=== PATIENT | female | born 1950 | race Caucasian/White ===

== ENCOUNTER 2016-11-16 17:14 | Inpatient (IN) | payer MEDICARE ==
[2016-11-16 17:56] LABS: #Eosinphils 0.2 thou/uL (0.0-0.7); #Lymphocytes 0.7 thou/uL (1.20-3.40); #Monocytes 0.4 thou/uL (0.11-0.59); #Neutrophils 3.3 thou/uL (1.40-6.50); %Basophils 0.2 % (0.0-1.0); %Eosinophils 4.5 % (0.0-10.0); %Lymphocytes 15.2 % (21.0-51.0); %Monocytes 8.8 % (0.0-10.0); Hematocrit 20.1 % (36.0-47.0); Mean Platelet Volume 6.2 fL (7.4-10.4); Red Blood Cell (RBC) Count 1.94 mill/uL (4.20-5.40); White Blood Cell (WBC) Count 4.7 thou/uL (4.8-10.8)
[2016-11-16 18:20] LABS: ALT (SGPT) 8 U/L (8-55); AST (SGOT) 17 U/L (5-34); Alkaline Phosphatase 73 U/L (40-150); Anion Gap 12 mmol/L (10-20); BUN (Urea Nitrogen) 17 mg/dL (9.8-20.1); Bilirubin, Total 0.2 mg/dL (0.2-1.2); CK (CPK) 28 U/L (29-168); Calc. Creatinine Clearance 0 mL/min (70-130); Calcium 9.1 mg/dL (7.8-10.44); Carbon Dioxide 23 mmol/L (23-31); Chloride 104 mmol/L (98-107); Estimated GFR-MDRD 29; Globulin 2.9 g/dL (2.4-3.5); Protein, Total 6.3 g/dL (6.0-8.3)
[2016-11-16 18:23] LABS: Troponin I Less than 0.010 ng/mL (< 0.028)
[2016-11-16] MEDS ORDERED: cefTRIAXone\\ROCEPHIN 1 GM VIAL ONE (19:06)
[2016-11-16 19:20] LABS: Bilirubin Negative (Negative); Blood, Urine Large (Negative); Glucose, Urine (Dipstick) Negative (Negative); Ketone, Urine Negative (Negative); Nitrite Negative (Negative); Protein, Urine (Dipstick) > or equal to 300 mg/dL (Neg-Trace); Urobilinogen 0.2 mg/dL (0.2-1.0)
[2016-11-16 19:33] LABS: Bacteria/HPF Rare-Few HPF (None Seen); Hyaline Casts/LPF NONE SEEN LPF (0-3 Hyaline); RBC/HPF GREATER THAN 50-TNTC HPF (0-3); Squamous Epithelial 0-3 HPF (0-3)
[2016-11-16] MEDS ORDERED: Fentanyl 100 MCG/2 ML VIAL ONE ×2 (19:48→20:39)
[2016-11-16] MEDS ORDERED: Iothalamate Meglumine 60% 50 ML VIAL FS ONE (20:02)
[2016-11-16] MEDS ORDERED: PHENYLEPHRINE-NS 100 MCG/ML 10 ML SYRINGE ONE (20:59)
[2016-11-16] MEDS ORDERED: Propofol 200 MG/20 ML VIAL ONE (20:59)
[2016-11-16] MEDS ORDERED: Succinylcholine Chloride 20 MG/ML 10 ml SYRINGE FS ONE (20:59)
[2016-11-16] MEDS ORDERED: Lidocaine 2% PF 10 ML AMP (For Epidural Use) ONE (20:59)
[2016-11-16] MEDS ORDERED: Ondansetron HCl/PF 4 MG/2 ML Vial IVP PRN (22:12)
[2016-11-16] MEDS ORDERED: Promethazine HCl 25 MG/ML VIAL IM PRN (22:12)
[2016-11-16] MEDS ORDERED: Morphine Sulfate 2 MG/ML SYRINGE SLOW IVP PRN (22:12)
[2016-11-16] MEDS ORDERED: Promethazine HCl 25 MG/ML VIAL SLOW IVP PRN (22:12)
[2016-11-16] MEDS ORDERED: HYDROmorphone 2 MG/ML VIAL SLOW IVP PRN (22:12)
--- NOTE | 2016-11-16 22:12 | RAD ---
RETROGRADE IVP: 11/16/16 HISTORY: Bilateral ureteral stents. Followup. COMPARISON: 09/20/16. Charm Filter Operator Helper film demonstrates a left stent in place. Contrast is injected into the right ureter with some right sided hydronephrosis and a right ureteral stent is placed. IMPRESSION: Bilateral ureteral stent placement. Moderate dilatation of both right and left upper collecting syst ems. Stable appearance from 09/20/16. POS: [facility]
[2016-11-16] MEDS ORDERED: Acetaminophen 325 MG TAB PO PRN (23:29)
[2016-11-16] MEDS ORDERED: HYDROcodone/Acetaminophen 5/325 mg Tablet PO PRN (23:29)
[2016-11-16] MEDS ORDERED: HYDROcodone/Acetaminophen 10/325 mg Tablet PO PRN (23:29)
[2016-11-16] MEDS ORDERED: Ondansetron ODT 4 MG TAB PO PRN (23:29)
[2016-11-17] MEDS: Sodium Chloride 0.9% 1,000 ML IV SCH ×2 (00:46→16:30)
[2016-11-17 01:05] VITALS: BMI 33.5
--- NOTE | 2016-11-17 01:44 | HP ---
DATE OF ADMISSION: 11/16/2016 The patient was seen at 11:30 p.m. PRIMARY CARE PHYSICIAN: Dr. Newman. CHIEF COMPLAINT: Weakness, blood and clots in the urine. HISTORY OF PRESENT ILLNESS: Ms. 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 She states that 3 days ago, Sunday, she started having very small clots in the urine that seemed to pass without difficulty. She presented to see her urologist, Dr. Garcia the next day, 2 days ago, and at that time was having slightly more blood. A urine test was significant for possible UTI, so the patient was started on amoxicillin/clavulanic acid and was watched. The bleeding continued to get worse to the point where she had large clots through the course of the day today and then was unable to urinate at all likely due to clot blockage. She presented to the emergency department for evaluation where she was found to have a hemoglobin of 6.7. Dr. Garcia was called, and took her to the cystoscopy suite for urgent cystoscopy, and right ureteral stent replacement. He subsequently led to a 3-way catheter and started her on CBI and we have been asked to admit. She denies any fevers or chills, no chest pain or shortness of breath, no nausea or vomiting, no oth er complaints. She was recently admitted on 09/19/2016 for dizziness, orthostasis, sepsis and complicated UTI. She completed a 14-day course of meropenem on 10/02/2016. From an Oncology standpoint, she was on chemotherapy, which she completed at the end of August/ A 2016. She has her follow up PET scan scheduled for 12/20/2016. She also completed 38 (she thinks) radiation external beam treatments at the same time. To her knowledge, she has had improve ment in her mass burden, but unknown how good At this point, post-cystoscopy, she is feeling much, much better. She denies any pain or other comp laints. PAST MEDICAL HISTORY: 1. Urothelial cancer with ureteral obstruction. 2. Right lower extremity deep vein thrombosis in 07/2016 on anticoagulation with Xarelto daily for a lifelong prophylaxis. 3. Bilateral renal obstruction secondary to her tumor. PAST SURGICAL HISTORY: 1. Include right nephrostomy around 06/2016, subsequently removed with a stent was able to be place d. 2. Left ureteral stent in 06/2016 and right ureteral stent in 08/2016. 3. Bilateral tubal ligation remotely. HOME MEDICATIONS: 1. Albuterol MDI 1 puff q.4 hours p.r.n., has not required in some time. 2. Xarelto 50 mg daily. 3. Multivitamin daily. 4. Urelle 1 tablet p.o. q.6 hours. 5. Iron sulfate 325 mg daily. ALLERGIES: NKDA. FAMILY HISTORY: Significant for dad with melanoma and blood clots. He was on Coumadin long-term. SOCIAL HISTORY: Significant for living at home alone. She did smoke about 1-1/2 pack of cigarettes per day for 30 years, but quit about 6 months ago. No history of IV drug use or alcohol use. Her daughter accompanies her to the hospital. REVIEW OF SYSTEMS: A 10-point review of systems was performed and significant for tingling to the b ottom of her feet for the last 3 days, improved, status post 2 units of blood transfusion today. Ot herwise, the 10-point review of systems was negative for all other systems except as stated as above . PHYSICAL EXAMINATION: VITAL SIGNS: Temperature 98.2, pulse 100, blood pressure 166/60, respiratory rate 20, satting 100% on room air. Pain was 5/10 on arrival, currently 0/10. GENERAL: She is awake. She is alert. She is oriented x3. She is a pleasant older white female, a ppears to be in no distress. HEENT: Normocephalic, atraumatic. Pupils are equal, round, and reactive bilaterally, mucous membra rosanna are moist. She has no visible lesions. No thrush. NECK: Supple, without lymphadenopathy, JVD or thyromegaly. LUNGS: Clear bilaterally. She has no wheezes, no rales, no rhonchi. She has good air movement and symmetrical chest excursion. CARDIOVASCULAR: Normal S1, S2, no S3, S4. She has normal cardiac. She has no audible murmurs. ABDOMEN: Obese. It is nontender, nondistended with no masses, no organomegaly. No rebound, rigidi ty or guarding. GENITOURINARY: Not examined. She does have a 3-way Bowden catheter in place. EXTREMITIES: Show no cyanosis, no clubbing, no edema, 2+ bounding peripheral pulses in the dorsalis pedis and posterior tibial bilaterally. She has no lesions present. SKIN: Warm, moist, and well perfused. She has no rashes or lesions. NEUROLOGIC: Shows cranial nerves II-XII to be grossly intact. She has no focal deficits, normal sp eech. She does have a slight numbness to her feet, but said her feeling is almost back to normal ar ound 90% to 95% at present. MUSCULOSKELETAL: Normal to inspection. She has no inflamed joints and no palpable joint effusions, no hemarthrosis. LABORATORY DATA: A comprehensive metabolic profile is normal except for a creatinine of 1.78, which is slightly above her normal baseline. CK, CK-MB, and troponin I were all negative. CBC showed a white count of 4.7. Her hemoglobin pretransfusion was 6.7 with a hematocrit of 20.1 an d platelet of 192,000. A retrograde pyelogram done in the cystoscopy suite showed left stent to be in place, right stent escamilla d been replaced. She had dilated bilateral collecting system in the kidneys and stable from 09/2016 . ASSESSMENT AND PLAN: 1. Gross hematuria. Blood and blood clots with significant anemia. She had her stent that she had passed, replaced in the cystoscopy suite tonight. She is currently undergoing CBI. 2. Acute blood loss anemia: Hemoglobin 6.7, and now status post 2 units of blood transfusion, we w ill repeat her blood counts in the morning. 3. Chronic kidney disease, stage 3, creatinine currently 1.78. The patient is getting hydration. We will continue to check and follow this up in the morning. 4. Urothelial cancer status post chemo and radiation. Dr. Parra is her oncologist, she has a PE T scan scheduled for 12/20/2016, no further workup at this time. At this time, we will hold the Xarelto. Follow up on her blood counts, and continue her iron. We w ill let her eat breakfast. She is no longer n.p.o. Make further recommendation when we have more i nformation back. The patient is currently on observation status. If her workup reveals further int ervention needed, we will convert her to full admission. Code status: The patient is a FULL CODE. This was discussed with the patient [id number] at the [facility] in presence of her daughter and the nurse.
--- NOTE | 2016-11-17 02:15 | OP ---
DATE OF PROCEDURE: 11/16/2016 PREOPERATIVE DIAGNOSES: Clot retention and dislodged stent, hematuria, hydronephrosis, history of m etastatic gynecologic cancer. 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 INDICATION FOR PROCEDURE: A very unfortunate 66-year-old female that has ovarian cancer that has escamilla d direct metastases into the bladder. These have caused ureteral obstruction. She presented to the ER with her right stent having fallen out and clot retention. Decision was made based on her hemog lobin that has dropped to 6.7, and her physical symptoms to go to the OR for clot evacuation, stent replacement, bladder fulguration. After signing informed consent, patient was taken back to the procedure room. She had already under gone IV antibiotics in the ER. She was given a general anesthetic, prepped, and draped in a sterile fashion after catheter was removed when her bladder with the cystoscope and there was a large organ ized clot and only the left stent was in place. We then switched to the continuous flow resectoscop e, using an Ellik, elliked out the clot. We then switched back to the cystoscope, found the right u reteral orifice. Put a 5-Argentine catheter into the orifice, shot a retrograde pyelogram that showed hydroureteronephrosis. We placed a sensor wire up into the kidney under direct vision with fluorosc opy and placed a 6 x 26 double-J stent, had a good curl in the kidney, good curl in the bladder. I then grasped the left stent brought it to the ureteral meatus. Put the sensor wire up into the kidn ey, removed the stent, put a 5-Argentine over the wire, removed the wire, shot a retrograde pyelogram. It also demonstrated hydroureteronephrosis. We then replaced the wire and placed a 6 x 26 double-J stent, had a good curl in the kidney, good curl in the bladder. A rrt image was saved prior to a nd images saved at the end of the case. We then switched back to the resectoscope and fulgurated th e multiple areas that were causing the most bleeding on the base of the bladder. The appearance is fairly classic of radiation cystitis and a diffuse hemorrhagic cystitis of tissue was very friable. We then stopped the flow and the bleeding appeared to have stopped, although there was blood also c oming from the kidneys. We then removed the resectoscope, placed a 24-Argentine three-way catheter irr igated clear and started CBI. It was light pink color, and we will have to run it wide open to allo w this to heal and she will continue on antibiotics.
--- NOTE | 2016-11-17 03:42 | CON ---
DATE OF CONSULTATION: 11/16/2016 CONSULTATION FROM: Dr. Pruett in the ER for hematuria, history of metastatic ovarian cancer status post chemoradiation. HISTORY OF PRESENT ILLNESS: She is a very unfortunate 66-year-old female that earlier this year was diagnosed with advanced ovarian cancer and had direct extension into the base of the bladder and ur eteral obstruction. She has stents in place and unfortunately developed a blood clot and has been o n blood thinners. She has been having increasing hematuria with clots for some time, but this got p rogressively worse in the last 24 hours. She presented to the emergency room, was found to have a c reatinine of 1.78 which was slightly elevated and hemoglobin down to 6.7. She was having difficulty urinating. PAST MEDICAL HISTORY: Arthritis, ovarian cancer, COPD, high cholesterol, hypertension, bilateral hy dronephrosis, renal failure, recurrent urinary tract infections. PAST SURGICAL HISTORY: Tubal ligation. She has had transurethral resection of the tumor from her b ladder, that was the initial diagnosis with stent placement. Home meds were reviewed. ALLERGIES: No known drug allergies. FAMILY HISTORY: Melanoma. SOCIAL HISTORY: She has recently stopped smoking. She denies alcohol use. REVIEW OF SYSTEMS: Constitutional: Denies fever or chills. Psychological: Negative for hallucination and disorientat ion, although she is anxious. Ophthalmic: Negative for double vision, blurred vision. ENT: Negat latisha for congestion, vertigo, sore throat. Hematologic/Lymphatic: She always has some night sweats. Respiratory: She is having some shortness of breath, denies wheezing. Cardiovascular: Negative for chest pain or rapid heart rate. Genitourinary: Hematuria with clots, decreased ability to void . Musculoskeletal: Denies back pain or joint pain. Gastrointestinal: Denies abdominal pain, naus ea or vomiting. Neurologic: No TIA or stroke-like symptoms. Dermatologic: Negative for any skin changes or rashes. PHYSICAL EXAMINATION: VITAL SIGNS: Temperature 98% on room air, blood pressure 142/76, pulse 88, respirations 20, tempera ture 98.5. She is alert, but in mild amount of distress. HEENT: Normocephalic, atraumatic. Glasses in place. RESPIRATORY: Unlabored, although she complains of shortness of breath. HEART: Regular rate. ABDOMEN: Soft, nontender, nondistended. She has some blood around the labia area. A 16 [place] Fol ey catheter was placed, returning cheyanne hematuria, no obvious clots. EXTREMITIES: She is moving all extremities well. Got some mild bilateral pitting edema. LABORATORY DATA: She has pancytopenia, white blood cell count 4.7, hemoglobin 6.7, platelet count i s 192. Chemistry: Sodium 135, potassium 3.6, chloride 104, CO2 of 23, BUN is 17. Creatinine 1.78, slightly elevated. Her troponins are negative. LFTs are within normal limits. No imaging. ASSESSMENT AND PLAN: A 66-year-old female with a history of ureteral obstruction, metastatic ovaria n cancer with direct extension into the bladder, status post radiation, now experiencing a radiation cystitis, worsened by her need to be on blood thinners from history of a deep venous thrombosis and she also has one of her stents dislodged. We will take her back to the OR for clot evacuation and fulguration of anything that we could see bleeding, stent exchange/replacement. The patient is awar e that we had great difficulty in placing a stent from below in the right ureter because of the dire ct extension of the tumor that is where she may eventually need a percutaneous nephrostomy tube.
[2016-11-17 06:30] LABS: #Eosinphils 0.1 thou/uL (0.0-0.7); #Lymphocytes 0.5 thou/uL (1.20-3.40); #Monocytes 0.5 thou/uL (0.11-0.59); #Neutrophils 3.9 thou/uL (1.40-6.50); %Basophils 0.4 % (0.0-1.0); %Eosinophils 1.8 % (0.0-10.0); %Monocytes 9.9 % (0.0-10.0); Hematocrit 23.3 % (36.0-47.0); Mean Platelet Volume 6.2 fL (7.4-10.4); Red Blood Cell (RBC) Count 2.36 mill/uL (4.20-5.40)
[2016-11-17 07:16] LABS: Anion Gap 9 mmol/L (10-20); BUN (Urea Nitrogen) 16 mg/dL (9.8-20.1); Calc. Creatinine Clearance 55 mL/min (70-130); Calcium 8.2 mg/dL (7.8-10.44); Carbon Dioxide 24 mmol/L (23-31); Chloride 107 mmol/L (98-107); Estimated GFR-MDRD 36
[2016-11-17] MEDS: Famotidine 20 MG TAB PO SCH ×2 (09:00→20:23)
[2016-11-17] MEDS ORDERED: FLU VACC TS2017-18 (>65YR) 0.5 ML SYRINGE IM ONE (09:00)
[2016-11-17] MEDS ORDERED: Bisacodyl 10 MG SUPP PR PRN (10:02)
[2016-11-17] MEDS ORDERED: Senokot 8.6 MG TAB PO PRN ×2 (10:02→13:33)
[2016-11-17] MEDS ORDERED: Milk Of Magnesia 30 ML UDCUP PO PRN (10:02)
--- NOTE | 2016-11-17 10:52 | PRG ---
DATE OF SERVICE: 11/17/2016 SUBJECTIVE: Overnight, the patient has done well. Her urine is pink tinged. OBJECTIVE: VITAL SIGNS: Afebrile with stable vital signs. GENERAL: Alert, no acute distress. ABDOMEN: Soft, nontender, and nondistended. GENITOURINARY: Again, her urine is light codey-aid color with CBI running. LABORATORY DATA: Hemoglobin is 7.8 and she overall is feeling better. 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 Plan will be to wean the CBI to off. Monito r her hemoglobin. Overall, she is much improved.
--- NOTE | 2016-11-17 12:32 | CON ---
DATE OF CONSULTATION: 11/17/2016 REASON FOR CONSULTATION: Anemia. HISTORY OF PRESENT ILLNESS: Ms. 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 She completed radiation and chemotherapy with cisplatin in August. On 09/04/2016 she did have a DVT of her left lower extremity veins in early August was started on Xar elto. At diagnosis she had bilateral hydronephrosis and hydroureter and had stent placements by Dr. Garcia. He has replaced her stents in the past. She overall was doing well until this last week when she began to have an increase in her hematuria. She also passed one of her stents in her urine , so she presented to the hospital for evaluation. Dr. Garcia was consulted and performed a bilate ral stent exchange with clot evacuation. In the ER, her hemoglobin was 6.7. She was transfused 2 u nits and hemoglobin has improved to 7.8. She denies any chest pain or shortness of breath. No abdo jt pain or discomfort. She continues to have blood-tinged urine and is undergoing continuous halina dder irrigation. Her primary complaint was bilateral foot numbness which started approximately 4 da ys ago, involves only the toes and ball of her foot bilaterally. PAST MEDICAL HISTORY: 1. Stage IV cervical cancer. 2. Chronic obstructive pulmonary disease. 3. DVT. 4. High cholesterol. 5. Hypertension. 6. Arthritis. PAST SURGICAL HISTORY: 1. Hysterectomy. 2. Bilateral ureteral stent placement. ALLERGIES: No known drug allergies. HOME MEDICATIONS: 1. Xarelto 20 mg daily. 2. Ferrous sulfate 325 mg b.i.d. 3. Myrbetriq 50 mg daily. FAMILY HISTORY: Father had melanoma, grandfather had stomach cancer. SOCIAL HISTORY: , 3 children. She is a former smoker. No alcohol or illicit drug use. REVIEW OF SYSTEMS: Twelve point review of systems negative except for noted in HPI. PHYSICAL EXAMINATION: VITAL SIGNS: Temperature is 98.4, pulse is 71, respiratory rate 16, BP is 98/56. She is 97% on wally m air. GENERAL: Well-developed, well-nourished female in no acute distress. HEENT: Normocephalic, atraumatic. Pupils equal and reactive to light. NECK: Supple. CARDIOVASCULAR: Regular rate and rhythm. LUNGS: Clear to auscultation. ABDOMEN: Soft, nontender, bowel sounds are positive. GENITOURINARY: She has a Bowden catheter in place with blood tinged urine, continuous bladder irriga tion in progress. EXTREMITIES: No clubbing, cyanosis. SKIN: No rash. HEMATOLOGIC: No petechia or purpura. NEUROLOGIC: Nonfocal. PSYCHIATRIC: The patient is alert and oriented. PERTINENT LABORATORY AND X-RAYS: Current WBCs are 5.0, hemoglobin 7.8, hematocrit 23.3, platelet co unt 152,000 78% neutrophils, 10% lymphocytes. Sodium 136, potassium 3.7, chloride 107, CO2 is 24, B UN is 16, creatinine 1.46, calcium 8.2, total bilirubin is 0.2, AST 17, ALT is 8, alkaline phosphata se 73, creatinine kinase 28. Troponin is negative. Serum total protein 6.3, albumin 2.4, globulin 2.9. Urine was negative for bacteria. IMPRESSION: 1. 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 2. Chronic hematuria. 3. Bilateral hydronephrosis with stent placement. 4. Chronic anemia secondary to acute blood loss. DISCUSSION: The patient has been transfused 2 units with improvement in her packed cells. Her gil turia has improved the last 24 hours. We will check iron studies and B12 and replace if needed. Fo llow her CBC and transfuse her for hemoglobin less than 7. Her Xarelto is being held. However, she will require lifelong anticoagulation. We will resume once her hematuria has improved. Thank you for the consult. We will follow her hospital course.
--- NOTE | 2016-11-17 13:27 | PDOC.PN ---
- Subjective Encounter Start Date: 11/17/16 Encounter Start Time: 10:15 Patient seen and examined. No new complaints. No overnight events. on CBI. Sitting on chair. No pain. - Objective MAR Reviewed: Yes Vital Signs & Weight: Vital Signs (12 hours) Temp Pulse Resp BP Pulse Ox 11/17/16 11:54 98.3 F 78 16 116/73 100 Result Diagrams: 11/17/16 05:45 11/17/16 05:45 Additional Labs: Accuchecks 11/17/16 10:23 POC Glucose 97 Phys Exam - Physical Examination Constitutional: NAD Respiratory: no wheezing, no rhonchi Cardiovascular: RRR, no rub Gastrointestinal: soft, non-tender, positive bowel sounds Musculoskeletal: no edema Neurological: moves all 4 limbs Psychiatric: A&O x 3 Dx/Plan (1) Hemorrhagic cystitis Code(s): N30.91 - CYSTITIS, UNSPECIFIED WITH HEMATURIA Status: Acute (2) Gross hematuria Status: Acute (3) Anemia associated with acute blood loss Code(s): D62 - ACUTE POSTHEMORRHAGIC ANEMIA Status: Acute Comment: s/p 2 unit PRBC (4) DVT (deep venous thrombosis) Code(s): I82.409 - ACUTE EMBOLISM AND THOMBOS UNSP DEEP VN UNSP LOWER EXTREMITY Status: Chronic Comment: on Xarelto at home (5) Other issues per previous notes Status: Acute Comment: Hypertension, Hyperlipidemia, Urothelial malignancy, Obesity BMI 33.5 - Plan cont current plan of care, jones catheter, continue antibiotics, out of bed/ ambulate, DVT proph w/SCDs * Xarelto on hold * Consult Oncology * Repeat HH later today * AM labs * Urology following * Cont to monitor * Resume other home meds Review of Systems - Review of Systems Constitutional: negative: Fever, Chills, Sweats, Weakness, Malaise, Other Respiratory: negative: Cough, Dry, Shortness of Breath, Hemoptysis, SOB with Excertion, Pleuritic Pain, Sputum, Wheezing Cardiovascular: negative: Chest Pain, Palpitations, Orthopnea, Paroxysmal Noc. Dyspnea, Edema, Light Headedness, Other Gastrointestinal: negative: Nausea, Vomiting, Abdominal Pain, Diarrhea, Constipation, Melena, Hematochezia, Other Neurological: negative: Weakness, Numbness, Incoordination, Change in Speech, Confusion, Seizures, Other - Medications/Allergies Allergies/Adverse Reactions: Allergies Allergy/AdvReac Type Severity Reaction Status Date / Time No Known Drug Allergies Allergy Verified 06/18/16 13:16 Medications: Current Medications Acetaminophen (Tylenol) 650 mg PO Q4H PRN PRN Reason: Headache/Fever or Pain Hydrocodone Bitart/Acetaminophen ([place] 10/325) 1 tab PO Q4H PRN PRN Reason: Severe Pain (7-10) Hydrocodone Bitart/Acetaminophen ([place] 5/325) 1 tab PO Q4H PRN PRN Reason: Moderate Pain (4-6) Bisacodyl (Dulcolax) 10 mg MD Q24H PRN PRN Reason: Constipation Cholecalciferol (Vitamin D3) 1,000 units PO DAILY [facility] Docusate Sodium (Colace) 100 mg PO BID [facility] Famotidine (Pepcid) 20 mg PO BID [facility] Last Admin: 11/17/16 09:00 Dose: 20 mg Ferrous Sulfate (Feosol) 325 mg PO BID [facility] Sodium Chloride (Normal Saline 0.9%) 1,000 mls @ 100 mls/hr IV .Q10H [facility] Last Admin: 11/17/16 00:46 Dose: 1,000 mls Ceftriaxone Sodium 1 gm/ (Sodium Chloride) 100 mls @ 200 mls/hr IVPB Q24HR [facility] Magnesium Hydroxide (Milk Of Magnesium) 30 ml PO DAILYPRN PRN PRN Reason: Constipation Multivitamins (Theragran) 1 tab PO DAILY [facility] Ondansetron HCl (Zofran Odt) 4 mg PO Q6H PRN PRN Reason: Nausea/Vomiting Senna (Senokot) 2 tab PO HSPRN PRN PRN Reason: Constipation Sodium Chloride (Flush - Normal Saline) 10 ml IVF Q12HR [facility] Last Admin: 11/17/16 09:00 Dose: Not Given Sodium Chloride (Flush - Normal Saline) 10 ml IVF PRN PRN PRN Reason: Saline Flush
[2016-11-17] MEDS ORDERED: Polyethylene Glycol 3350 17 GM Packet PO PRN (13:33)
[2016-11-17 16:18] LABS: Hematocrit 23.9 % (36.0-47.0)
[2016-11-17] MEDS: Ferrous Sulfate 325 MG TAB PO SCH (20:23)
[2016-11-17] MEDS: Docusate 100 MG CAP PO SCH (20:23)
[2016-11-17] MEDS ORDERED: Non-Formulary Item 1 EACH (Ferrous Sulfate [Ferrous Sulfate] 325 MG) PO SCH (21:00)
[2016-11-18] MEDS: cefTRIAXone\\ROCEPHIN 1 GM in Sodium Chloride 0.9% 100 ML IVPB SCH ×2 (00:24→20:51)
[2016-11-18] MEDS: Sodium Chloride 0.9% 1,000 ML IV SCH ×2 (00:27→06:56)
[2016-11-18 07:06] LABS: #Eosinphils 0.2 thou/uL (0.0-0.7); #Lymphocytes 0.5 thou/uL (1.20-3.40); #Monocytes 0.4 thou/uL (0.11-0.59); #Neutrophils 3.2 thou/uL (1.40-6.50); %Basophils 0.2 % (0.0-1.0); %Eosinophils 4.1 % (0.0-10.0); %Lymphocytes 10.8 % (21.0-51.0); %Monocytes 10.1 % (0.0-10.0); Hematocrit 22.4 % (36.0-47.0); Mean Platelet Volume 6.4 fL (7.4-10.4); Red Blood Cell (RBC) Count 2.22 mill/uL (4.20-5.40); White Blood Cell (WBC) Count 4.3 thou/uL (4.8-10.8)
[2016-11-18 07:26] LABS: Anion Gap 8 mmol/L (10-20); BUN (Urea Nitrogen) 13 mg/dL (9.8-20.1); BUN/Creatinine Ratio 8.97; Calc. Creatinine Clearance 55 mL/min (70-130); Calcium 8.3 mg/dL (7.8-10.44); Carbon Dioxide 25 mmol/L (23-31); Chloride 108 mmol/L (98-107); Estimated GFR-MDRD 36; Magnesium 1.8 mg/dL (1.6-2.6); Phosphorus 3.2 mg/dL (2.3-4.7)
[2016-11-18] MEDS ORDERED: Non-Formulary Item 1 EACH (Cholecalciferol (Vitamin D3) [Vitamin D3] 1,000 UNIT) PO SCH (09:00)
[2016-11-18] MEDS ORDERED: Non-Formulary Item 1 EACH (Multivitamin [Multivitamins] 1 CAP) PO SCH (09:00)
--- NOTE | 2016-11-18 09:20 | PDOC.PN ---
- Subjective Encounter Start Date: 11/18/16 Encounter Start Time: 09:17 Patient seen and examined. No new complaints. No overnight events. On CBI. Gross hematuria + - Objective MAR Reviewed: Yes Vital Signs & Weight: Vital Signs (12 hours) Temp Pulse Resp BP Pulse Ox 11/18/16 08:00 98.1 F 74 18 131/70 96 11/18/16 04:41 98.2 F 75 16 101/66 96 11/17/16 23:48 98.4 F 75 16 99/60 97 I&O: 11/17/16 11/18/16 11/19/16 06:59 06:59 06:59 Output Total 3195 Balance -3195 Result Diagrams: 11/18/16 06:50 11/18/16 06:50 Additional Labs: Accuchecks 11/17/16 10:23 POC Glucose 97 Phys Exam - Physical Examination Constitutional: NAD Respiratory: no wheezing, no rhonchi Cardiovascular: RRR, no rub Gastrointestinal: soft, non-tender, positive bowel sounds Musculoskeletal: no edema Neurological: moves all 4 limbs Psychiatric: A&O x 3 Dx/Plan (1) Hemorrhagic cystitis Code(s): N30.91 - CYSTITIS, UNSPECIFIED WITH HEMATURIA Status: Acute Comment : on CBI, Atbx (2) Gross hematuria Status: Acute Comment: on CBI (3) Anemia associated with acute blood loss Code(s): D62 - ACUTE POSTHEMORRHAGIC ANEMIA Status: Acute Comment: s/p 2 unit PRBC (4) DVT (deep venous thrombosis) Code(s): I82.409 - ACUTE EMBOLISM AND THOMBOS UNSP DEEP VN UNSP LOWER EXTREMITY Status: Chronic Comment: Xarelto ON HOLD (5) Other issues per previous notes Status: Acute Comment: Hypertension, Hyperlipidemia, Urothelial malignancy, Obesity BMI 33.5 - Plan cont current plan of care, DVT proph w/SCDs * DC IVF * Xarelto on hold * Oncology/Urology following * AM labs * Cont Atbx * Cont to monitor * Cont other meds as below Review of Systems - Review of Systems Constitutional: negative: Fever, Chills, Sweats, Weakness, Malaise, Other Respiratory: negative: Cough, Dry, Shortness of Breath, Hemoptysis, SOB with Excertion, Pleuritic Pain, Sputum, Wheezing Cardiovascular: negative: Chest Pain, Palpitations, Orthopnea, Paroxysmal Noc. Dyspnea, Edema, Light Headedness, Other Gastrointestinal: negative: Nausea, Vomiting, Abdominal Pain, Diarrhea, Constipation, Melena, Hematochezia, Other Neurological: negative: Weakness, Numbness, Incoordination, Change in Speech, Confusion, Seizures, Other - Medications/Allergies Allergies/Adverse Reactions: Allergies Allergy/AdvReac Type Severity Reaction Status Date / Time No Known Drug Allergies Allergy Verified 06/18/16 13:16 Medications: Current Medications Acetaminophen (Tylenol) 650 mg PO Q4H PRN PRN Reason: Headache/Fever or Pain Hydrocodone Bitart/Acetaminophen (Ione 10/325) 1 tab PO Q4H PRN PRN Reason: Severe Pain (7-10) Hydrocodone Bitart/Acetaminophen (Ione 5/325) 1 tab PO Q4H PRN PRN Reason: Moderate Pain (4-6) Bisacodyl (Dulcolax) [address] Q24H PRN PRN Reason: Constipation Cholecalciferol (Vitamin D3) 1,000 units PO DAILY [facility] Cyanocobalamin (Vitamin B-12) 1,000 mcg PO DAILY [facility] Docusate Sodium (Colace) 100 mg PO BID [facility] Last Admin: 11/17/16 20:23 Dose: 100 mg Famotidine (Pepcid) 20 mg PO BID [facility] Last Admin: 11/17/16 20:23 Dose: 20 mg Ferrous Sulfate (Feosol) 325 mg PO BID [facility] Last Admin: 11/17/16 20:23 Dose: 325 mg Ceftriaxone Sodium 1 gm/ (Sodium Chloride) 100 mls @ 200 mls/hr IVPB Q24HR [facility] Last Admin: 11/18/16 00:24 Dose: 100 mls Potassium Chloride/Sodium Chloride (Ns 0.9% W/ 20 Meq Kcl) 1,000 ml in 1,000 mls @ 50 mls/hr IV .Q20H [facility] Magnesium Hydroxide (Milk Of Magnesium) 30 ml PO DAILYPRN PRN PRN Reason: Constipation Multivitamins (Theragran) 1 tab PO DAILY [facility] Ondansetron HCl (Zofran Odt) 4 mg PO Q6H PRN PRN Reason: Nausea/Vomiting Polyethylene Glycol (Miralax) 17 gm PO DAILY PRN PRN Reason: Constipation Senna (Senokot) 2 tab PO HSPRN PRN PRN Reason: Constipation Sodium Chloride (Flush - Normal Saline) 10 ml IVF Q12HR [facility] Last Admin: 11/18/16 00:28 Dose: Not Given Sodium Chloride (Flush - Normal Saline) 10 ml IVF PRN PRN PRN Reason: Saline Flush
[2016-11-18] MEDS: Docusate 100 MG CAP PO SCH ×2 (09:45→20:53)
[2016-11-18] MEDS: Famotidine 20 MG TAB PO SCH ×2 (09:45→20:52)
[2016-11-18] MEDS: Ferrous Sulfate 325 MG TAB PO SCH ×2 (09:45→20:52)
[2016-11-18] MEDS: Cyanocobalamin (Vitamin B-12) 1,000 MCG TAB PO SCH (09:45)
[2016-11-18] MEDS: Multivit, Therapeutic 1 TAB PO SCH (09:46)
[2016-11-18] MEDS: NS 0.9% w/ 20 MEQ KCL 1,000 ML/1,000 ML BAG IV SCH (14:39)
[2016-11-19] MEDS: NS 0.9% w/ 20 MEQ KCL 1,000 ML/1,000 ML BAG IV SCH (05:11)
[2016-11-19 07:04] LABS: #Eosinphils 0.2 thou/uL (0.0-0.7); #Lymphocytes 0.5 thou/uL (1.20-3.40); #Monocytes 0.5 thou/uL (0.11-0.59); #Neutrophils 2.7 thou/uL (1.40-6.50); %Monocytes 11.9 % (0.0-10.0); Hematocrit 23.5 % (36.0-47.0); Mean Platelet Volume 6.3 fL (7.4-10.4); Red Blood Cell (RBC) Count 2.31 mill/uL (4.20-5.40); White Blood Cell (WBC) Count 3.9 thou/uL (4.8-10.8)
[2016-11-19 07:24] LABS: ALT (SGPT) 10 U/L (8-55); AST (SGOT) 14 U/L (5-34); Alkaline Phosphatase 59 U/L (40-150); Anion Gap 9 mmol/L (10-20); BUN (Urea Nitrogen) 13 mg/dL (9.8-20.1); Bilirubin, Total 0.2 mg/dL (0.2-1.2); Calc. Creatinine Clearance 60 mL/min (70-130); Calcium 8.5 mg/dL (7.8-10.44); Carbon Dioxide 24 mmol/L (23-31); Chloride 110 mmol/L (98-107); Estimated GFR-MDRD 40; Globulin 2.5 g/dL (2.4-3.5); Protein, Total 5.2 g/dL (6.0-8.3)
[2016-11-19] MEDS: Cyanocobalamin (Vitamin B-12) 1,000 MCG TAB PO SCH (08:01)
[2016-11-19] MEDS: Multivit, Therapeutic 1 TAB PO SCH (08:01)
[2016-11-19] MEDS: Famotidine 20 MG TAB PO SCH ×2 (08:02→20:29)
[2016-11-19] MEDS: Docusate 100 MG CAP PO SCH ×2 (08:03→20:29)
[2016-11-19] MEDS: Ferrous Sulfate 325 MG TAB PO SCH ×2 (08:03→20:29)
--- NOTE | 2016-11-19 16:17 | PDOC.PN ---
- Subjective Encounter Start Date: 11/19/16 Encounter Start Time: 16:15 Subjective: f/u for gross hematuria due to hemorrhagic cystitis in context of -: urothelial carcinoma s/p chemo/XRT tx. Tx with CBI, cystoscopy with R -: ureteral stent placment and avoidance of Xarelto. - Objective MAR Reviewed: Yes Vital Signs & Weight: Vital Signs (12 hours) Temp Pulse Resp BP BP Pulse Ox 11/19/16 11:56 98.3 F 77 18 116/68 97 11/19/16 07:00 98.3 F 64 17 124/72 98 11/19/16 04:15 98.6 F 72 17 117/71 95 I&O: 11/18/16 11/19/16 11/20/16 06:59 06:59 06:59 Output Total 3195 7550 350 Balance -3195 -1950 -350 Result Diagrams: 11/19/16 06:00 11/19/16 06:00 Additional Labs: Laboratory Tests 11/16/16 11/16/16 11/17/16 17:46 17:46 05:45 Hgb 6.7 L Creatinine 1.78 H 1.46 H TIBC Ferritin Vitamin B12 Folate 11/17/16 11/17/16 11/17/16 05:45 16:10 16:10 Hgb 7.8 L 8.0 L Creatinine TIBC 206 L Ferritin Vitamin B12 Folate 11/17/16 11/17/16 11/18/16 16:10 16:10 06:50 Hgb 7.5 L Creatinine TIBC Ferritin 153.46 Vitamin B12 299 Folate 12.20 11/18/16 06:50 Hgb Creatinine 1.45 H TIBC Ferritin Vitamin B12 Folate Phys Exam - Physical Examination Constitutional: NAD HEENT: PERRLA, oral pharynx no lesions Neck: no JVD, supple Respiratory: no wheezing, clear to auscultation bilateral Cardiovascular: RRR Gastrointestinal: soft, non-tender, no distention, positive bowel sounds Musculoskeletal: no edema, pulses present Neurological: normal sensation, moves all 4 limbs Psychiatric: A&O x 3 Skin: normal turgor, cap refill <2 seconds Deviation from normal: Bowden with dark, pink urine Dx/Plan (1) Anemia associated with acute blood loss Code(s): D62 - ACUTE POSTHEMORRHAGIC ANEMIA Status: Acute Comment: s/p 2 unit PRBC, stable (2) Gross hematuria Status: Acute Comment: on CBI, continue per Urology service (3) Hemorrhagic cystitis Code(s): N30.91 - CYSTITIS, UNSPECIFIED WITH HEMATURIA Status: Acute Comment : on CBI, continue Rocephin 1gm IV daily (4) POONAM (acute kidney injury) Code(s): N17.9 - ACUTE KIDNEY FAILURE, UNSPECIFIED Status: Acute Comment: Renal function improved, continue current mgmt, serial creatinine (5) Hydronephrosis of right kidney Code(s): N13.30 - UNSPECIFIED HYDRONEPHROSIS Status: Acute Comment: s/p R ureteral stent placement 11/16/16 (6) CKD (chronic kidney disease) stage 3, GFR 30-59 ml/min Code(s): N18.3 - CHRONIC KIDNEY DISEASE, STAGE 3 (MODERATE) Status: Chronic (7) Primary cervical squamous cell carcinoma Code(s): C53.9 - MALIGNANT NEOPLASM OF CERVIX UTERI, UNSPECIFIED Status: Chronic Comment: Stage IV cervical carcinoma, s/p chemo/XRT - Plan continue antibiotics, DVT proph w/SCDs Stable overall -: Avoid anticoagulation, NSAIDs -: CBI per Urology service -: Continue Rocephin 1gm IV q24h -: AM lab: BMP, H/H * .
[2016-11-19] MEDS: cefTRIAXone\\ROCEPHIN 1 GM in Sodium Chloride 0.9% 100 ML IVPB SCH (20:29)
[2016-11-20 05:26] LABS: Hematocrit 22.1 % (36.0-47.0)
[2016-11-20 05:33] LABS: Anion Gap 10 mmol/L (10-20); BUN (Urea Nitrogen) 13 mg/dL (9.8-20.1); Calc. Creatinine Clearance 63 mL/min (70-130); Calcium 8.6 mg/dL (7.8-10.44); Carbon Dioxide 25 mmol/L (23-31); Chloride 109 mmol/L (98-107); Estimated GFR-MDRD 42
[2016-11-20] MEDS: Famotidine 20 MG TAB PO SCH ×2 (08:35→20:14)
[2016-11-20] MEDS: Multivit, Therapeutic 1 TAB PO SCH (08:35)
[2016-11-20] MEDS: Docusate 100 MG CAP PO SCH ×2 (08:35→20:15)
[2016-11-20] MEDS: Cyanocobalamin (Vitamin B-12) 1,000 MCG TAB PO SCH (08:35)
[2016-11-20] MEDS: Ferrous Sulfate 325 MG TAB PO SCH ×2 (08:36→20:14)
--- NOTE | 2016-11-20 08:58 | PDOC.PN ---
- Subjective Encounter Start Date: 11/20/16 Encounter Start Time: 09:00 Subjective: f/u for gross hematuria currently on CBI with some clearing per nursing. -: Hgb 7.4 stable. - Objective MAR Reviewed: Yes Vital Signs & Weight: Vital Signs (12 hours) Temp Pulse Resp BP Pulse Ox 11/20/16 07:22 98.5 F 74 16 127/75 98 11/20/16 04:00 98.2 F 70 18 113/63 98 11/20/16 00:01 98.5 F 81 17 107/68 99 I&O: 11/19/16 11/20/16 11/21/16 06:59 06:59 06:59 Intake Total 2456 Output Total 1950 1475 Balance -1950 981 Result Diagrams: 11/20/16 05:00 11/20/16 05:00 Additional Labs: Laboratory Tests 11/16/16 11/16/16 11/17/16 17:46 17:46 05:45 Hgb 6.7 L Creatinine 1.78 H 1.46 H TIBC Ferritin Vitamin B12 Folate 11/17/16 11/17/16 11/17/16 05:45 16:10 16:10 Hgb 7.8 L 8.0 L Creatinine TIBC 206 L Ferritin Vitamin B12 Folate 11/17/16 11/17/16 11/18/16 16:10 16:10 06:50 Hgb 7.5 L Creatinine TIBC Ferritin 153.46 Vitamin B12 299 Folate 12.20 11/18/16 11/19/16 11/19/16 06:50 06:00 06:00 Hgb 7.6 L Creatinine 1.45 H 1.33 H TIBC Ferritin Vitamin B12 Folate Phys Exam - Physical Examination Constitutional: NAD HEENT: PERRLA, oral pharynx no lesions Neck: no JVD, supple Respiratory: no wheezing, clear to auscultation bilateral Cardiovascular: RRR Gastrointestinal: soft, non-tender, no distention, positive bowel sounds Musculoskeletal: no edema, pulses present Neurological: normal sensation, moves all 4 limbs Psychiatric: A&O x 3 Skin: normal turgor, cap refill <2 seconds Deviation from normal: Bowden with slight pink/orange urine Dx/Plan (1) Anemia associated with acute blood loss Code(s): D62 - ACUTE POSTHEMORRHAGIC ANEMIA Status: Acute Comment: s/p 2 unit PRBC, stable, Hgb stable in 7.5 range (2) Gross hematuria Status: Acute Comment: on CBI, continue per Urology service, improving (3) Hemorrhagic cystitis Code(s): N30.91 - CYSTITIS, UNSPECIFIED WITH HEMATURIA Status: Acute Comment : on CBI, continue Rocephin 1gm IV daily (4) POONAM (acute kidney injury) Code(s): N17.9 - ACUTE KIDNEY FAILURE, UNSPECIFIED Status: Acute Comment: Renal function improved, continue current mgmt, serial creatinine (5) Hydronephrosis of right kidney Code(s): N13.30 - UNSPECIFIED HYDRONEPHROSIS Status: Acute Comment: s/p R ureteral stent placement 11/16/16 (6) CKD (chronic kidney disease) stage 3, GFR 30-59 ml/min Code(s): N18.3 - CHRONIC KIDNEY DISEASE, STAGE 3 (MODERATE) Status: Chronic (7) Primary cervical squamous cell carcinoma Code(s): C53.9 - MALIGNANT NEOPLASM OF CERVIX UTERI, UNSPECIFIED Status: Chronic Comment: Stage IV cervical carcinoma, s/p chemo/XRT - Plan continue antibiotics, DVT proph w/SCDs Stable currently -: Continue CBI and monitor response, overall improved -: Continue Rocephin 1gm IV daily -: Avoid NSAIDs, anticoagulation -: Continue FeSO4 325mg BID * AM lab: BMP, H/H * Likely home in 24h
--- NOTE | 2016-11-20 12:17 | PQF ---
RODERICK NIETODWIGHT DO [id number] SURG B- [id number] CLINICAL DOCUMENTATION IMPROVEMENT CLARIFICATION FORM: ICD-10 Updated PLEASE DO AN ADDENDUM TO THE PROGRESS NOTE WITH ANY DOCUMENTATION UPDATES OR ADDITIONS AND CARRY THROUGH TO DC SUMMARY. THANK YOU. DATE: 11-20-16 ATTN: DR. RIVER Please exercise your independent, professional judgment in responding to the clarification form. Clinical indicators are provided on the bottom of this form for your review Please check appropriate box(s): Pancytopenia due to: [ ] Chemotherapy/antineoplastic drugs [ ] Other drug-induced Xarelto [ ] Other diagnosis [ x] Unable to determine In addition, please specify: Present on Admission (POA): [ ] Yes [ ] No [ x ] Unable to determine For continuity of documentation, please document condition throughout progress notes and discharge summary. Thank You. CLINICAL INDICATORS - SIGNS / SYMPTOMS / LABS CONSULT DR. MCGILL: SHE HAS PANCYTOPENIA LABS: WBC 10-5 4.7 RBC 1.94 10-6 5.0 2.36 10-7 4.3 2.22 10-8 3.9 2.[address] MCGILL - METASTATIC OVARIAN CANCER S/P CHEMORADIATION, NOW EXPERIENCING RADIATION CYSTITIS. WORSENED BY NEED TO BE ON BLOOD THINNERS (XARELTO) D/T HX OF DVT. TREATMENT: COPE - 2 UNITS PRBC 11-16-16 H&P: HOLD XARELTO THANK YOU, MARANDA (This form is maintained as a part of the permanent medical record) 2014 [employer] All Rights Reserved Maranda Azevedo RN, BS [email or web address] [facility]
[2016-11-20] MEDS: cefTRIAXone\\ROCEPHIN 1 GM in Sodium Chloride 0.9% 100 ML IVPB SCH (20:13)
[2016-11-21 04:24] LABS: Hematocrit 21.8 % (36.0-47.0)
[2016-11-21 05:38] LABS: Anion Gap 10 mmol/L (10-20); BUN (Urea Nitrogen) 12 mg/dL (9.8-20.1); Calc. Creatinine Clearance 65 mL/min (70-130); Calcium 8.4 mg/dL (7.8-10.44); Carbon Dioxide 23 mmol/L (23-31); Chloride 107 mmol/L (98-107); Estimated GFR-MDRD 44
[2016-11-21] MEDS: Docusate 100 MG CAP PO SCH (08:57)
[2016-11-21] MEDS: Cyanocobalamin (Vitamin B-12) 1,000 MCG TAB PO SCH (08:58)
[2016-11-21] MEDS: Famotidine 20 MG TAB PO SCH (08:58)
[2016-11-21] MEDS: Ferrous Sulfate 325 MG TAB PO SCH (08:58)
[2016-11-21] MEDS: Multivit, Therapeutic 1 TAB PO SCH (08:58)
[2016-11-21 19:58] VITALS: BP 130/73; TEMP 99.2
--- NOTE | 2016-11-21 22:51 | DIS ---
DATE OF ADMISSION: 11/16/2016 DATE OF DISCHARGE: 11/21/2016 DISCHARGE DIAGNOSES: 1. Gross hematuria secondary to clot retention and displaced ureteral stent. 2. Acute blood loss anemia secondarily to gross hematuria secondary to clot retention and displaced ureteral stent. 3. Hemorrhagic cystitis, improved. 4. Acute kidney injury secondarily to acute blood loss anemia secondarily to gross hematuria second charlotte to clot retention and displaced ureteral stent, resolved. 5. 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 6. Status post right ureteral stent replacement, 11/16/2016. 7. Status post 2 units of packed red blood cells. 8. Right lower extremity deep vein thrombosis with previous Xarelto therapy. CONSULTATIONS: 1. Dr. Garcia with Urology service. 2. Medical Oncology Service. PERTINENT LABORATORY AND X-RAY FINDINGS: Creatinine ranged between 1.22-1.78 with estimated GFR ran ging between 29-44. Phosphorus 3.2, magnesium 1.8, ferritin 153, TIBC 206, vitamin B12 level 299, f olate 12.2. CBC showed a hemoglobin ranging between 7.2-8.0, platelet count ranged between 137-152. HOSPITAL COURSE: The patient was admitted to the [facility] after presenting with gross hematuri a and acute blood loss anemia with initial hemoglobin of 6.7. The patient received 2 units of packe d red blood cells with serial H\T\H monitoring showing an overall stable trend with hemoglobin in th e 7.5 range through the remainder of the hospital course. The patient was noted with hemorrhagic cy stitis, undergoing cystoscopy by the Urology service and replacement of a displaced right ureteral s tent. The patient was placed on continuous bladder irrigation with serial monitoring of urine quali ty. The patient had overall improved clearing of the urine and resolving clot retention in the blad rafael. The patient was noted with mild acute kidney injury at the time of presentation, likely second charlotte to bladder outlet obstruction due to clot retention. Creatinine had improved by the time of dis charge with IV fluids as well as continuous bladder irrigation. The patient was discontinued on ora l anticoagulation due to the gross hematuria and need for packed red blood cell transfusions. Curre ntly, the patient clinically stabilized with the overall clearing of the urine with continuous bladd er irrigation and supportive measures. The patient is currently stable and ready for discharge on . DISCHARGE MEDICATIONS: 1. Vitamin D3 1000 units p.o. daily. 2. Ferrous sulfate 325 mg p.o. b.i.d. 3. Multivitamin 1 tab p.o. daily. FOLLOWUP: The patient may follow up with her primary care provider, Dr. Eduardo Newman, within 7 day s of discharge. The patient will follow up with Dr. Garcia with Urology Service and call his offic e for appointment time and the date in the next 2 weeks. CONDITION ON DISCHARGE: Stable. ACTIVITY: ad nae. DIET: Regular. CODE STATUS: FULL. DISPOSITION: Home on 11/21/2016. Total time preparing and coordinating discharge, 35 minutes.
--- NOTE | 2016-11-21 23:34 | CON ---
DATE OF CONSULTATION: 11/21/2016 NEPHROLOGY CONSULTATION REASON FOR CONSULTATION: Chronic kidney disease. HISTORY OF PRESENT ILLNESS: This is a very pleasant 66-year-old female who was admitted to the [facility] for squamous cell carcinoma of the cervix and stent replacement. The patient also had proteinu nato. She was noted to have blood clots in her urine. PAST MEDICAL HISTORY: Significant for urothelial cancer, cervical cancer, right lower extremity DVT , bilateral obstruction secondary to her tumor, nephrostomy. HOME MEDICATIONS: List reviewed. HOSPITAL MEDICATIONS: List reviewed. SOCIAL HISTORY: No alcohol or drug use. FAMILY HISTORY: Negative for ESRD. REVIEW OF SYSTEMS: A 15-point review of systems was performed and negative except for positives not ed above. GENERAL: Weakness- HEAD: Headache- NECK: No swelling or lumps. NOSE: No epistaxis or discharge. EYES: No diplopia or pain. 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 NEUROPSYCHIATRIC SYSTEMS: No suicidal ideation. No ideation. SKIN: Denies any rash or ulcer. CONSTITUTIONAL: No fever or chills. PHYSICAL EXAMINATION: GENERAL: The patient is awake and alert. VITAL SIGNS: Afebrile, pulse 70, breathing at 16, blood pressure 132/77. OBJECTIVE: See above. HEAD/NECK: Normocephalic. Atraumatic. EYES: EOMI. No deformity. EARS: Clear. No ulcers. NOSE: Intact. No lesions. MOUTH: Clear. No discharge. THROAT: Clear. No exudate. LUNGS: Clear. No crackles. CARDIAC: S1, S2. No rub. ABDOMEN: Benign. BS+. GENITALIA/RECTUM: Bowden absent. BACK/EXTREMITIES: Edema 0+ Ulcer- NEUROLOGICAL: Alert and motor intact. SKIN: Rash- Bruise- LYMPHATICS: Edema- Ulcer- LABORATORY DATA: Showed potassium 3.3, creatinine 1.2. ASSESSMENT AND RECOMMENDATIONS: 1. Chronic kidney disease stage 3, stable. 2. Hypertension, stable. 3. Hypokalemia. Recommend aggressive potassium replacement. 4. Proteinuria, most likely because of blood. Would recommend checking her random urine protein-cr eatinine ratio after the blood clots have resolved. No indication for dialysis at this time.
== END 2016-11-21 20:25 | disposition home or self-care (01) | DRG 669 ==
LOC: ERS 17:14 → ONC 18:20 → SURG B 22:23 → OBSVTOIN 11-17 08:41
PROVIDERS: ADMIT Internal Medicine; ATTEND Internal Medicine
PROC: 30233N1 Transfusion of Nonautologous Red Blood Cells into Peripheral Vein, Percutaneous Approach (ICD-10-PCS; 2016-11-16)
PROC: BT140ZZ Fluoroscopy of Kidneys, Ureters and Bladder using High Osmolar Contrast (ICD-10-PCS; principal; 2016-11-17)
PROC: 0T5B8ZZ Destruction of Bladder, Via Natural or Artificial Opening Endoscopic (ICD-10-PCS; 2016-11-17)
PROC: 0T788DZ Dilation of Bilateral Ureters with Intraluminal Device, Via Natural or Artificial Opening Endoscopic (ICD-10-PCS; 2016-11-17)
PROC: 0TP98DZ Removal of Intraluminal Device from Ureter, Via Natural or Artificial Opening Endoscopic (ICD-10-PCS; 2016-11-17)
DX: N30.41 Irradiation cystitis with hematuria (principal); N17.9 Acute kidney failure, unspecified; D61.818 Other pancytopenia; C79.11 Secondary malignant neoplasm of bladder; D62 Acute posthemorrhagic anemia; N13.30 Unspecified hydronephrosis; J44.9 Chronic obstructive pulmonary disease, unspecified; T83.123A Displacement of other urinary stents, initial encounter; N18.3 Chronic kidney disease, stage 3 (moderate); I12.9 Hypertensive chronic kidney disease with stage 1 through stage 4 chronic kidney disease, or unspecified chronic kidney disease; Z87.891 Personal history of nicotine dependence; E87.6 Hypokalemia; Z86.718 Personal history of other venous thrombosis and embolism; Z79.01 Long term (current) use of anticoagulants; C53.9 Malignant neoplasm of cervix uteri, unspecified; E78.5 Hyperlipidemia, unspecified; E66.9 Obesity, unspecified; Z68.33 Body mass index [BMI] 33.0-33.9, adult; Z23 Encounter for immunization; Z92.3 Personal history of irradiation; N32.89 Other specified disorders of bladder
CPT/HCPCS: 36415; 36416; 36430; 74420; 80048; 80053; 80069; 81003; 81015; 82550; 82553; 82607; 82728; 82746; 83550; 83735; 84484; 85014; 85018; 85025; 85049; 86850; 86900; 86901; 86922; 90471; 90682; 96365; A4216; C1758; C1769; G0008; J0696; J1170; J2001; J2704; J3010; J7050; P9016; Q2036; Q9961

== ENCOUNTER 2017-04-09 12:31 | Outpatient (CLI) | payer MEDICARE, OTHER | END 2017-04-09 12:32 | disposition home or self-care (01) | LOC: BICMAMMO 12:31 | PROVIDERS: ATTEND Internal Medicine Hematology & Oncology | DX: Z12.31 Encounter for screening mammogram for malignant neoplasm of breast (principal); Z85.41 Personal history of malignant neoplasm of cervix uteri | CPT/HCPCS: 77063; 77067 ==

== ENCOUNTER 2017-07-25 14:19 | Outpatient (CLI) | payer MEDICARE | END 2017-07-25 14:20 | disposition home or self-care (01) | LOC: BICMAMMO 14:19 | PROVIDERS: ATTEND Family Medicine | DX: Z13.820 Encounter for screening for osteoporosis (principal); M81.0 Age-related osteoporosis without current pathological fracture; Z78.0 Asymptomatic menopausal state | CPT/HCPCS: 77080 ==

== ENCOUNTER 2017-08-20 12:57 | Outpatient (CLI) | payer MEDICARE, OTHER ==
--- NOTE | 2017-08-20 14:28 | CT ---
CT CHEST NONCONTRAST: PULMONARY LUNG SCAN LOW DOSE: HISTORY: Tobacco abuse. Screening. FINDINGS: The lungs are slightly hyperinflated with scattered areas of parenchymal scarring. Tiny, nonspecific , subpleural nodule at the lateral aspect of the right upper lobe is apparent. A 0.6 cm subpleural n odule is evident at the medial aspect of the left apex. Subtle peripheral pleural thickening is pres ent along the posterolateral aspect of the left inferior hemothorax. At the left posterior costophre giovanny angle, a 1.1 cm, oval soft tissue density nodule shows broad-based contact with the pleura. Lack of contrast limits evaluation of the soft tissues. A left subclavian Mediport is apparent. The re is calcification in the arterial structures. IMPRESSION: 1. The 1.1 cm, somewhat flat nodule at the left posterior costophrenic angle has appeared since the CT abdomen from 06/18/2016. Morphology, however, is not typical for a parenchymal neoplasm. This co uld represent a focal area of developing atelectasis. There is also a 0.6 cm subpleural nodule at th e left lung apex. 2. Lung-RADS Category 4A: Short-term followup warranted. Please consider follow-up CT chest with I V contrast in three months to re-evaluate the left lung nodules detailed above. 3. Atherosclerosis. POS: [facility]
== END 2017-08-20 12:58 | disposition home or self-care (01) ==
LOC: CT 12:57
PROVIDERS: ATTEND Family Medicine
DX: Z87.891 Personal history of nicotine dependence (principal); R91.8 Other nonspecific abnormal finding of lung field; J98.11 Atelectasis; I70.8 Atherosclerosis of other arteries
CPT/HCPCS: G0297

== ENCOUNTER 2017-08-24 11:03 | Day surgery (SDC) | payer MEDICARE, OTHER ==
[2017-08-24] MEDS ORDERED: CARBOPLATIN IVPB SCH (11:30)
[2017-08-24] MEDS ORDERED: SODIUM CHLORIDE 0.9% IVPB SCH ×3 (11:30→12:00)
[2017-08-24] MEDS ORDERED: PACLitaxel 150 MG in Sodium Chloride 0.9% 250 ML 250 ML IVPB SCH (11:30)
[2017-08-24] MEDS ORDERED: BEVACIZUMAB IVPB SCH ×2 (11:45→12:00)
[2017-08-24] MEDS ORDERED: Dexamethasone 10 MG, Ondansetron HCl/PF 10 MG in Sodium Chloride 0.9% 50 ML IVPB SCH (11:45)
[2017-08-24] MEDS ORDERED: Sodium Chloride 0.9% 20 ML ONE (12:21)
[2017-08-24 12:22] VITALS: BP 157/76; TEMP 98.2
== END 2017-08-24 17:45 | disposition home or self-care (01) ==
LOC: ONC/OP 11:03
PROVIDERS: ATTEND Internal Medicine Medical Oncology
DX: Z51.11 Encounter for antineoplastic chemotherapy (principal); C53.8 Malignant neoplasm of overlapping sites of cervix uteri
CPT/HCPCS: 36415; 80053; 82248; 83615; 84100; 84550; 96367; 96413; 96417; A4216; J1100; J1642; J2405; J7050; J9035; J9045; J9267

== ENCOUNTER 2017-08-31 10:27 | Day surgery (SDC) | payer MEDICARE, OTHER ==
[2017-08-31] MEDS ORDERED: SODIUM CHLORIDE 0.9% IVPB SCH (10:45)
[2017-08-31] MEDS ORDERED: CARBOPLATIN IVPB SCH (10:45)
[2017-08-31] MEDS ORDERED: Dexamethasone 10 MG, Ondansetron 2MG/ML MDV 10 MG in Sodium Chloride 0.9% 50 ML IVPB SCH (10:45)
[2017-08-31] MEDS ORDERED: PACLitaxel 150 MG in Sodium Chloride 0.9% 250 ML 250 ML IVPB SCH (10:45)
[2017-08-31] MEDS ORDERED: diphenhydrAMINE 50 MG/ML VIAL ONE (13:10)
[2017-08-31] MEDS ORDERED: diphenhydrAMINE 50 MG/ML VIAL IVP SCH (13:15)
[2017-08-31] MEDS ORDERED: Famotidine/PF 20 mg/2ml Vial SLOW IVP SCH (13:15)
[2017-08-31 14:53] VITALS: BP 167/80; TEMP 98
== END 2017-08-31 15:28 | disposition home or self-care (01) ==
LOC: ONC/OP 10:27
PROVIDERS: ATTEND Internal Medicine Medical Oncology
DX: Z51.11 Encounter for antineoplastic chemotherapy (principal); C53.8 Malignant neoplasm of overlapping sites of cervix uteri; J44.9 Chronic obstructive pulmonary disease, unspecified; E78.2 Mixed hyperlipidemia; I10 Essential (primary) hypertension; M19.90 Unspecified osteoarthritis, unspecified site; F17.200 Nicotine dependence, unspecified, uncomplicated; Z79.899 Other long term (current) drug therapy
CPT/HCPCS: 36415; 80053; 82248; 83615; 84100; 84550; 96367; 96375; 96413; 96417; J1100; J1200; J2405; J7050; J9045; J9267; S0028

== ENCOUNTER 2017-09-07 10:01 | Day surgery (SDC) | payer MEDICARE, OTHER ==
[2017-09-07] MEDS ORDERED: Sodium Chloride 0.9% 40 ML ONE (10:23)
[2017-09-07] MEDS ORDERED: SODIUM CHLORIDE 0.9% IVPB SCH (10:30)
[2017-09-07] MEDS ORDERED: diphenhydrAMINE 50 MG/ML VIAL IVP SCH (10:30)
[2017-09-07] MEDS ORDERED: Ondansetron 2MG/ML MDV 10 MG, Dexamethasone 10 MG in Sodium Chloride 0.9% 50 ML IVP SCH (10:30)
[2017-09-07] MEDS ORDERED: CARBOPLATIN IVPB SCH (10:30)
[2017-09-07] MEDS ORDERED: Famotidine/PF 20 mg/2ml Vial SLOW IVP SCH (10:30)
[2017-09-07] MEDS ORDERED: PACLitaxel 150 MG in Sodium Chloride 0.9% 250 ML 250 ML IVPB SCH (10:30)
[2017-09-07 17:09] VITALS: TEMP 97.5
[2017-09-07 17:47] VITALS: BP 154/75
== END 2017-09-07 17:40 | disposition home or self-care (01) ==
LOC: ONC/OP 10:01
PROVIDERS: ATTEND Internal Medicine Medical Oncology
DX: Z51.11 Encounter for antineoplastic chemotherapy (principal); C53.8 Malignant neoplasm of overlapping sites of cervix uteri; J44.9 Chronic obstructive pulmonary disease, unspecified; N39.0 Urinary tract infection, site not specified
CPT/HCPCS: 36415; 80053; 81001; 82248; 83615; 84100; 84550; 87086; 96367; 96375; 96413; 96417; 99212; A4216; G0463; J1100; J1200; J1642; J2405; J7050; J9045; J9267; S0028

== ENCOUNTER 2017-09-14 09:45 | Day surgery (SDC) | payer MEDICARE, OTHER ==
[2017-09-14] MEDS ORDERED: diphenhydrAMINE 25 MG in Sodium Chloride 0.9% 50 ML IVPB SCH (10:30)
[2017-09-14] MEDS ORDERED: Famotidine/PF 20 MG in Sodium Chloride 0.9% 50 ML IVPB SCH (10:30)
[2017-09-14] MEDS ORDERED: Ondansetron 2MG/ML MDV 10 MG, Dexamethasone 10 MG in Sodium Chloride 0.9% 50 ML IVP SCH (10:30)
[2017-09-14] MEDS ORDERED: Sodium Chloride 0.9% 20 ML ONE (10:43)
[2017-09-14] MEDS ORDERED: SODIUM CHLORIDE 0.9% IVPB SCH ×2 (11:00)
[2017-09-14] MEDS ORDERED: BEVACIZUMAB IVPB SCH (11:00)
[2017-09-14] MEDS ORDERED: CARBOPLATIN IVPB SCH (11:00)
[2017-09-14 13:32] VITALS: BP 179/84; TEMP 98.6
== END 2017-09-14 13:05 | disposition home or self-care (01) ==
LOC: ONC/OP 09:45
PROVIDERS: ATTEND Internal Medicine Medical Oncology
DX: Z51.11 Encounter for antineoplastic chemotherapy (principal); C53.8 Malignant neoplasm of overlapping sites of cervix uteri; C78.7 Secondary malignant neoplasm of liver and intrahepatic bile duct; C78.5 Secondary malignant neoplasm of large intestine and rectum; J44.9 Chronic obstructive pulmonary disease, unspecified; E78.2 Mixed hyperlipidemia; I10 Essential (primary) hypertension; M19.90 Unspecified osteoarthritis, unspecified site; F41.9 Anxiety disorder, unspecified; F32.9 Major depressive disorder, single episode, unspecified; F17.200 Nicotine dependence, unspecified, uncomplicated; Z79.01 Long term (current) use of anticoagulants; Z79.52 Long term (current) use of systemic steroids; Z79.899 Other long term (current) drug therapy
CPT/HCPCS: 96375; 96413; 96417; A4216; J1100; J1200; J1642; J2405; J7050; J9035; J9045; S0028

== ENCOUNTER 2017-09-21 09:26 | Day surgery (SDC) | payer MEDICARE, OTHER ==
[2017-09-21] MEDS ORDERED: Famotidine/PF 20 mg/2ml Vial SLOW IVP SCH (09:45)
[2017-09-21] MEDS ORDERED: CARBOPLATIN IVPB SCH (09:45)
[2017-09-21] MEDS ORDERED: SODIUM CHLORIDE 0.9% IVPB SCH (09:45)
[2017-09-21] MEDS ORDERED: diphenhydrAMINE 50 MG/ML VIAL IVP SCH (09:45)
[2017-09-21] MEDS ORDERED: Ondansetron 2MG/ML MDV 10 MG, Dexamethasone 10 MG in Sodium Chloride 0.9% 50 ML IVP SCH (09:45)
[2017-09-21] MEDS ORDERED: Sodium Chloride 0.9% 20 ML ONE (10:38)
[2017-09-21 12:53] VITALS: BP 155/76
== END 2017-09-21 12:54 | disposition home or self-care (01) ==
LOC: ONC/OP 09:26
PROVIDERS: ATTEND Internal Medicine Medical Oncology
DX: Z51.11 Encounter for antineoplastic chemotherapy (principal); C53.8 Malignant neoplasm of overlapping sites of cervix uteri; C78.7 Secondary malignant neoplasm of liver and intrahepatic bile duct; C78.89 Secondary malignant neoplasm of other digestive organs; J44.9 Chronic obstructive pulmonary disease, unspecified; E78.2 Mixed hyperlipidemia; I10 Essential (primary) hypertension; M19.90 Unspecified osteoarthritis, unspecified site; F41.8 Other specified anxiety disorders; Z79.899 Other long term (current) drug therapy
CPT/HCPCS: 96375; 96413; A4216; J1100; J1642; J2405; J7050; J9045

== ENCOUNTER 2017-09-28 09:12 | Day surgery (SDC) | payer MEDICARE, OTHER ==
[2017-09-28] MEDS ORDERED: Sodium Chloride 0.9% 20 ML ONE (09:19)
[2017-09-28 09:51] VITALS: BP 188/83
[2017-09-28] MEDS ORDERED: Ondansetron 2MG/ML MDV 10 MG, Dexamethasone 10 MG in Sodium Chloride 0.9% 50 ML IVP SCH (10:15)
[2017-09-28] MEDS ORDERED: SODIUM CHLORIDE 0.9% IVPB SCH (10:45)
[2017-09-28] MEDS ORDERED: CARBOPLATIN IVPB SCH (10:45)
== END 2017-09-28 16:37 | disposition home or self-care (01) ==
LOC: ONC/OP 09:12
PROVIDERS: ATTEND Internal Medicine Hematology & Oncology
DX: Z51.11 Encounter for antineoplastic chemotherapy (principal); C53.8 Malignant neoplasm of overlapping sites of cervix uteri; C78.7 Secondary malignant neoplasm of liver and intrahepatic bile duct; C78.89 Secondary malignant neoplasm of other digestive organs; J44.9 Chronic obstructive pulmonary disease, unspecified; E78.2 Mixed hyperlipidemia; I10 Essential (primary) hypertension; M19.90 Unspecified osteoarthritis, unspecified site; F41.9 Anxiety disorder, unspecified; F32.9 Major depressive disorder, single episode, unspecified; F17.200 Nicotine dependence, unspecified, uncomplicated; Z79.899 Other long term (current) drug therapy
CPT/HCPCS: 36415; 80053; 82248; 83615; 84100; 84550; 96367; 96413; A4216; J1100; J1642; J2405; J7050; J9045

== ENCOUNTER 2017-10-05 09:28 | Day surgery (SDC) | payer MEDICARE, OTHER ==
[2017-10-05] MEDS ORDERED: CARBOPLATIN IVPB SCH (09:45)
[2017-10-05] MEDS ORDERED: BEVACIZUMAB IVPB SCH ×2 (09:45→10:00)
[2017-10-05] MEDS ORDERED: Ondansetron HCl/PF 4 MG/2 ML Vial SLOW IVP SCH (09:45)
[2017-10-05] MEDS ORDERED: SODIUM CHLORIDE 0.9% IVPB SCH ×3 (09:45→10:00)
[2017-10-05] MEDS ORDERED: Dexamethasone 4 mg/ml Vial SLOW IVP SCH (09:45)
[2017-10-05] MEDS ORDERED: Sodium Chloride 0.9% 20 ML ONE (09:46)
[2017-10-05] MEDS ORDERED: Dexamethasone 10 MG, Ondansetron 2MG/ML MDV 10 MG in Sodium Chloride 0.9% 50 ML IVPB SCH (10:00)
[2017-10-05 10:11] VITALS: BP 173/84; TEMP 98.1
== END 2017-10-05 13:03 | disposition home or self-care (01) ==
LOC: ONC/OP 09:28
PROVIDERS: ATTEND Internal Medicine Hematology & Oncology
DX: Z51.11 Encounter for antineoplastic chemotherapy (principal); C53.8 Malignant neoplasm of overlapping sites of cervix uteri; C78.7 Secondary malignant neoplasm of liver and intrahepatic bile duct; C78.89 Secondary malignant neoplasm of other digestive organs; J44.9 Chronic obstructive pulmonary disease, unspecified; E78.2 Mixed hyperlipidemia; I10 Essential (primary) hypertension; M19.90 Unspecified osteoarthritis, unspecified site; F41.9 Anxiety disorder, unspecified; F32.9 Major depressive disorder, single episode, unspecified; F17.200 Nicotine dependence, unspecified, uncomplicated; Z79.899 Other long term (current) drug therapy
CPT/HCPCS: 36415; 80053; 82248; 83615; 84100; 84550; 96367; 96413; 96417; A4216; J1100; J1642; J2405; J7050; J9035; J9045

== ENCOUNTER 2017-10-12 09:13 | Day surgery (SDC) | payer MEDICARE, OTHER ==
[2017-10-12] MEDS ORDERED: Dexamethasone 4 mg/ml Vial SLOW IVP SCH (11:15)
[2017-10-12] MEDS ORDERED: CARBOPLATIN IVPB SCH (11:15)
[2017-10-12] MEDS ORDERED: Ondansetron HCl/PF 4 MG/2 ML Vial SLOW IVP SCH (11:15)
[2017-10-12] MEDS ORDERED: SODIUM CHLORIDE 0.9% IVPB SCH (11:15)
[2017-10-12 15:47] VITALS: BP 174/101; TEMP 97.8
== END 2017-10-12 15:56 | disposition home or self-care (01) ==
LOC: ONC/OP 09:13
PROVIDERS: ATTEND Internal Medicine Hematology & Oncology
DX: Z51.11 Encounter for antineoplastic chemotherapy (principal); C53.8 Malignant neoplasm of overlapping sites of cervix uteri; C78.7 Secondary malignant neoplasm of liver and intrahepatic bile duct; C78.89 Secondary malignant neoplasm of other digestive organs; J44.9 Chronic obstructive pulmonary disease, unspecified; E78.2 Mixed hyperlipidemia; I10 Essential (primary) hypertension; F41.9 Anxiety disorder, unspecified; F32.9 Major depressive disorder, single episode, unspecified; M19.90 Unspecified osteoarthritis, unspecified site; F17.200 Nicotine dependence, unspecified, uncomplicated
CPT/HCPCS: 36415; 36591; 80053; 82248; 83615; 84100; 84550; 96375; 96413; J1100; J2405; J7050; J9045

== ENCOUNTER 2017-10-30 12:47 | Outpatient (CLI) | payer MEDICARE, OTHER ==
--- NOTE | 2017-10-31 10:35 | PET ---
PET SCAN WITH CT ATTENUATION CORRECTION: HISTORY: Uterine cancer, restaging. Evaluation of the lesions in the spleen, liver, and lung is requested. COMPARISON: PET imaging performed in [place] on 07/20/17. Report from that exam is not available. TECHNIQUE: PET scanning with CT attenuation correction is performed from the base of the brain to the proximal t highs following the intravenous administration of 11.5 mCi F18-FDG. FINDINGS: HEAD/NECK: No abnormal FDG localization. CHEST: CT used for attenuation correction demonstrates pleural based opacities noted on lung scan from 08/20. There is no significant FDG avidity. There is no abnormal FDG localization in the chest. ABDOMEN/PELVIS: The previously noted hypermetabolic focus along the medial aspect of the spleen is not appreciated. T here is no abnormal FDG localization in the spleen. Previously noted hypermetabolic activity in the p osterior segment of the liver is not appreciated on the current examination. Subtle hypoattenuation o n the CT used for attenuation correction is noted. This hypodense lesion has decreased in size when c ompared to the previous examination. Currently, this hypodense lesion is approximately 0.8 cm (previo usly approximately 1.8 cm). There is a questionable subtle area of FDG avidity involving the right hepatic lobe with a maximum GONCALVES V of 4.0. Definitive FDG localization in this region is difficult to determine given background FDG a vidity of the liver, which is approximately 3.4 in terms of maximum SUV. OSSEOUS STRUCTURES: No abnormal FDG localization. IMPRESSION: 1. Interval resolution of FDG avidity in the spleen. Previously noted FDG avidity in the liver is no t appreciated and the hypodensity on the CT used for attenuation correction is decreasing in size. Qu estionable area of FDG avidity in the liver as described above. The maximum SUV is slightly greater t casas the background hypermetabolic activity of the liver. 2. Pleural based masses are identified without FDG avidity. These pleural based masses are in the le ft hemithorax. POS: [facility]
== END 2017-10-30 12:48 | disposition home or self-care (01) ==
LOC: PET 12:47
PROVIDERS: ATTEND Internal Medicine Medical Oncology
DX: C55 Malignant neoplasm of uterus, part unspecified (principal); R91.8 Other nonspecific abnormal finding of lung field
CPT/HCPCS: 78815; A9552

== ENCOUNTER 2017-11-02 10:13 | Day surgery (SDC) | payer MEDICARE, OTHER ==
[2017-11-02] MEDS ORDERED: Sodium Chloride 0.9% 30 ML ONE (10:50)
[2017-11-02] MEDS ORDERED: Dexamethasone 10 MG, Ondansetron 2MG/ML MDV 10 MG in Sodium Chloride 0.9% 50 ML IVPB SCH (11:00)
[2017-11-02] MEDS ORDERED: CARBOPLATIN IVPB SCH (11:00)
[2017-11-02] MEDS ORDERED: SODIUM CHLORIDE 0.9% IVPB SCH ×3 (11:00→11:15)
[2017-11-02] MEDS ORDERED: BEVACIZUMAB IVPB SCH ×2 (11:00→11:15)
== END 2017-11-02 13:15 | disposition home or self-care (01) ==
LOC: ONC/OP 10:13
PROVIDERS: ATTEND Internal Medicine Medical Oncology
DX: Z51.11 Encounter for antineoplastic chemotherapy (principal); C53.8 Malignant neoplasm of overlapping sites of cervix uteri; C78.7 Secondary malignant neoplasm of liver and intrahepatic bile duct; C78.89 Secondary malignant neoplasm of other digestive organs; J44.9 Chronic obstructive pulmonary disease, unspecified; E78.2 Mixed hyperlipidemia; I10 Essential (primary) hypertension; M19.90 Unspecified osteoarthritis, unspecified site; F41.9 Anxiety disorder, unspecified; F32.9 Major depressive disorder, single episode, unspecified; F17.200 Nicotine dependence, unspecified, uncomplicated
CPT/HCPCS: 36415; 80053; 82248; 83615; 84100; 84550; 96375; 96413; 96417; A4216; J1100; J1642; J2405; J7050; J9035; J9045

== ENCOUNTER 2017-11-09 08:59 | Day surgery (SDC) | payer MEDICARE, OTHER ==
[2017-11-09] MEDS ORDERED: Dexamethasone 10 MG, Ondansetron 2MG/ML MDV 10 MG in Sodium Chloride 0.9% 50 ML IVPB SCH (09:15)
[2017-11-09] MEDS ORDERED: SODIUM CHLORIDE 0.9% IVPB SCH (09:15)
[2017-11-09] MEDS ORDERED: CARBOPLATIN IVPB SCH (09:15)
[2017-11-09] MEDS ORDERED: Dexamethasone Sod Phosphate 10 MG, Ondansetron 2MG/ML MDV 10 MG in Sodium Chloride 0.9%... IVPB SCH (09:45)
[2017-11-09 12:05] VITALS: BP 176/81; TEMP 97.7
== END 2017-11-09 12:06 | disposition home or self-care (01) ==
LOC: ONC/OP 08:59
PROVIDERS: ATTEND Internal Medicine Medical Oncology
DX: Z51.11 Encounter for antineoplastic chemotherapy (principal); C53.8 Malignant neoplasm of overlapping sites of cervix uteri; J44.9 Chronic obstructive pulmonary disease, unspecified; I10 Essential (primary) hypertension; E78.2 Mixed hyperlipidemia; Z79.899 Other long term (current) drug therapy
CPT/HCPCS: 36415; 80053; 82248; 83615; 84100; 84550; 96375; 96413; J1100; J2405; J7050; J9045

== ENCOUNTER 2017-11-16 09:14 | Day surgery (SDC) | payer MEDICARE, OTHER ==
[2017-11-16] MEDS ORDERED: Sodium Chloride 0.9% 20 ML ONE (09:26)
[2017-11-16] MEDS ORDERED: CARBOPLATIN IVPB SCH (10:00)
[2017-11-16] MEDS ORDERED: Dexamethasone Sod Phosphate 10 MG, Ondansetron 2MG/ML MDV 10 MG in Sodium Chloride 0.9%... IVPB SCH (10:00)
[2017-11-16] MEDS ORDERED: SODIUM CHLORIDE 0.9% IVPB SCH (10:00)
[2017-11-16 10:16] VITALS: BP 187/88; TEMP 98.1
== END 2017-11-16 12:16 | disposition home or self-care (01) ==
LOC: ONC/OP 09:14
PROVIDERS: ATTEND Internal Medicine Medical Oncology
DX: Z51.11 Encounter for antineoplastic chemotherapy (principal); C53.8 Malignant neoplasm of overlapping sites of cervix uteri; J44.9 Chronic obstructive pulmonary disease, unspecified; I10 Essential (primary) hypertension; E78.2 Mixed hyperlipidemia; F17.200 Nicotine dependence, unspecified, uncomplicated; Z79.899 Other long term (current) drug therapy
CPT/HCPCS: 36415; 80053; 82248; 83615; 84100; 84550; 96375; 96413; A4216; J1642; J2405; J7050; J9045

== ENCOUNTER 2017-11-23 10:45 | Day surgery (SDC) | payer MEDICARE, OTHER ==
[2017-11-23] MEDS ORDERED: SODIUM CHLORIDE 0.9% IVPB SCH (11:30)
[2017-11-23] MEDS ORDERED: CARBOPLATIN IVPB SCH (11:30)
[2017-11-23] MEDS ORDERED: Ondansetron 2MG/ML MDV 10 MG, Dexamethasone Sod Phosphate 10 MG in Sodium Chloride 0.9%... IVPB SCH (11:30)
[2017-11-23] MEDS ORDERED: Sodium Chloride 0.9% 20 ML ONE (12:58)
[2017-11-23 13:09] VITALS: BP 176/94; TEMP 98.3
[2017-11-23 18:09] LABS: ALT (SGPT) 10 U/L (8-55); AST (SGOT) 19 U/L (5-34); Albumin 4.2 g/dL (3.4-4.8); Alkaline Phosphatase 70 U/L (40-150); Anion Gap 14 mmol/L (10-20); BUN (Urea Nitrogen) 21 mg/dL (9.8-20.1); Bilirubin, Direct 0.2 mg/dL (0.1-0.3); Bilirubin, Total 0.5 mg/dL (0.2-1.2); Calc. Creatinine Clearance 50 mL/min (70-130); Calcium 9.4 mg/dL (7.8-10.44); Carbon Dioxide 22 mmol/L (23-31); Chloride 106 mmol/L (98-107); Estimated GFR-MDRD 36; Globulin 2.9 g/dL (2.4-3.5); Glucose 77 mg/dL (80-115); LDH 125 U/L (125-220); Phosphorus 3.9 mg/dL (2.3-4.7); Potassium 4.2 mmol/L (3.5-5.1); Protein, Total 7.1 g/dL (6.0-8.3); Sodium 138 mmol/L (136-145); Uric Acid 5.7 mg/dL (2.6-6.0)
== END 2017-11-23 13:26 | disposition home or self-care (01) ==
LOC: ONC/OP 10:45
PROVIDERS: ATTEND Internal Medicine Medical Oncology
DX: Z51.11 Encounter for antineoplastic chemotherapy (principal); C53.8 Malignant neoplasm of overlapping sites of cervix uteri; J44.9 Chronic obstructive pulmonary disease, unspecified; E78.2 Mixed hyperlipidemia; F17.200 Nicotine dependence, unspecified, uncomplicated; Z79.899 Other long term (current) drug therapy
CPT/HCPCS: 80053; 82248; 83615; 84100; 84550; 96367; 96413; J1642; J2405; J7050; J9045

== ENCOUNTER 2017-11-30 09:36 | Day surgery (SDC) | payer MEDICARE, OTHER ==
[2017-11-30] MEDS ORDERED: Sodium Chloride 0.9% 20 ML ONE (09:45)
[2017-11-30] MEDS ORDERED: Dexamethasone 10 MG/ML VIAL SLOW IVP SCH (10:00)
[2017-11-30] MEDS ORDERED: Ondansetron HCl/PF 4 MG/2 ML Vial SLOW IVP SCH (10:00)
[2017-11-30] MEDS ORDERED: SODIUM CHLORIDE 0.9% IVPB SCH ×3 (10:00→12:15)
[2017-11-30] MEDS ORDERED: CARBOPLATIN IVPB SCH (10:00)
[2017-11-30 10:21] VITALS: BP 185/78; TEMP 98.2
[2017-11-30] MEDS ORDERED: BEVACIZUMAB IVPB SCH ×2 (12:15)
== END 2017-11-30 16:31 | disposition home or self-care (01) ==
LOC: ONC/OP 09:36
PROVIDERS: ATTEND Internal Medicine Medical Oncology
DX: Z51.11 Encounter for antineoplastic chemotherapy (principal); C53.8 Malignant neoplasm of overlapping sites of cervix uteri; J44.9 Chronic obstructive pulmonary disease, unspecified; E78.2 Mixed hyperlipidemia; I10 Essential (primary) hypertension; F17.200 Nicotine dependence, unspecified, uncomplicated; Z79.899 Other long term (current) drug therapy
CPT/HCPCS: 96375; 96413; 96417; J1100; J1642; J2405; J7050; J9035; J9045

== ENCOUNTER 2017-12-07 08:35 | Day surgery (SDC) | payer MEDICARE, OTHER ==
[2017-12-07] MEDS ORDERED: CARBOPLATIN IVPB SCH (09:00)
[2017-12-07] MEDS ORDERED: SODIUM CHLORIDE 0.9% IVPB SCH (09:00)
[2017-12-07] MEDS ORDERED: Dexamethasone 10 MG, Ondansetron 2MG/ML MDV 10 MG, Admixture Fee 1 EACH in Sodium Chlor... IVPB SCH (09:00)
[2017-12-07] MEDS ORDERED: Sodium Chloride 0.9% 20 ML ONE (09:08)
[2017-12-07 10:03] VITALS: BP 140/71; TEMP 98
== END 2017-12-07 14:41 | disposition home or self-care (01) ==
LOC: ONC/OP 08:35
PROVIDERS: ATTEND Internal Medicine Medical Oncology
DX: Z51.11 Encounter for antineoplastic chemotherapy (principal); C53.8 Malignant neoplasm of overlapping sites of cervix uteri; C78.7 Secondary malignant neoplasm of liver and intrahepatic bile duct; C78.89 Secondary malignant neoplasm of other digestive organs; J44.9 Chronic obstructive pulmonary disease, unspecified; E78.2 Mixed hyperlipidemia; I10 Essential (primary) hypertension; M19.90 Unspecified osteoarthritis, unspecified site; F17.210 Nicotine dependence, cigarettes, uncomplicated; Z86.718 Personal history of other venous thrombosis and embolism; Z79.01 Long term (current) use of anticoagulants; Z79.899 Other long term (current) drug therapy
CPT/HCPCS: 36415; 80053; 82248; 83615; 84100; 84550; 96376; 96413; J1100; J1642; J2405; J7050; J9045

== ENCOUNTER 2017-12-14 08:36 | Day surgery (SDC) | payer MEDICARE, OTHER ==
[2017-12-14] MEDS ORDERED: Sodium Chloride 0.9% 20 ML ONE (08:42)
[2017-12-14] MEDS ORDERED: Dexamethasone 10 MG, Ondansetron 2MG/ML MDV 10 MG in Sodium Chloride 0.9% 50 ML IVPB SCH (09:15)
[2017-12-14] MEDS ORDERED: CARBOPLATIN IVPB SCH (09:15)
[2017-12-14] MEDS ORDERED: Dexamethasone Sod Phosphate 10 MG, Ondansetron 2MG/ML MDV 10 MG in Sodium Chloride 0.9%... IVPB SCH (09:15)
[2017-12-14] MEDS ORDERED: SODIUM CHLORIDE 0.9% IVPB SCH (09:15)
[2017-12-14 11:56] VITALS: BP 136/84; TEMP 98.4
== END 2017-12-14 11:58 | disposition home or self-care (01) ==
LOC: ONC/OP 08:36
PROVIDERS: ATTEND Internal Medicine Medical Oncology
DX: Z51.11 Encounter for antineoplastic chemotherapy (principal); C53.8 Malignant neoplasm of overlapping sites of cervix uteri; Z88.8 Allergy status to other drugs, medicaments and biological substances
CPT/HCPCS: 96375; 96413; J1100; J1642; J2405; J7050; J9045

== ENCOUNTER 2017-12-21 09:01 | Day surgery (SDC) | payer MEDICARE, OTHER ==
[2017-12-21] MEDS ORDERED: Sodium Chloride 0.9% 20 ML ONE (09:06)
[2017-12-21] MEDS ORDERED: Dexamethasone Sod Phosphate 10 MG, Ondansetron 2MG/ML MDV 10 MG in Sodium Chloride 0.9%... IVPB SCH (09:15)
[2017-12-21] MEDS ORDERED: SODIUM CHLORIDE 0.9% IVPB SCH ×3 (09:15→11:30)
[2017-12-21] MEDS ORDERED: CARBOPLATIN IVPB SCH (09:15)
[2017-12-21] MEDS ORDERED: BEVACIZUMAB IVPB SCH ×2 (10:45→11:30)
[2017-12-21 15:49] VITALS: BP 143/95; TEMP 98.3
== END 2017-12-21 16:00 | disposition home or self-care (01) ==
LOC: ONC/OP 09:01
PROVIDERS: ATTEND Internal Medicine Medical Oncology
DX: Z51.11 Encounter for antineoplastic chemotherapy (principal); C53.8 Malignant neoplasm of overlapping sites of cervix uteri; J44.9 Chronic obstructive pulmonary disease, unspecified; I10 Essential (primary) hypertension; F17.200 Nicotine dependence, unspecified, uncomplicated; Z79.899 Other long term (current) drug therapy
CPT/HCPCS: 96375; 96413; 96417; J1642; J2405; J7050; J9035; J9045

== ENCOUNTER 2017-12-28 09:19 | Day surgery (SDC) | payer MEDICARE, OTHER ==
[2017-12-28 09:38] VITALS: BP 156/88; TEMP 98.1
[2017-12-28] MEDS ORDERED: Dexamethasone 10 MG, Ondansetron 2MG/ML MDV 10 MG in Sodium Chloride 0.9% 50 ML IVPB SCH (09:45)
[2017-12-28] MEDS ORDERED: Dexamethasone Sod Phosphate 10 MG, Ondansetron 2MG/ML MDV 10 MG in Sodium Chloride 0.9%... IVPB SCH (09:45)
[2017-12-28] MEDS ORDERED: CARBOPLATIN IVPB SCH (09:45)
[2017-12-28] MEDS ORDERED: SODIUM CHLORIDE 0.9% IVPB SCH (09:45)
[2017-12-28] MEDS ORDERED: Sodium Chloride 0.9% 20 ML ONE (09:52)
== END 2017-12-28 11:46 | disposition home or self-care (01) ==
LOC: ONC/OP 09:19
PROVIDERS: ATTEND Internal Medicine Medical Oncology
DX: Z51.11 Encounter for antineoplastic chemotherapy (principal); C53.8 Malignant neoplasm of overlapping sites of cervix uteri; J44.9 Chronic obstructive pulmonary disease, unspecified; E78.2 Mixed hyperlipidemia; I10 Essential (primary) hypertension; F17.200 Nicotine dependence, unspecified, uncomplicated; Z79.899 Other long term (current) drug therapy
CPT/HCPCS: 36415; 80053; 82248; 83615; 84100; 84550; 96375; 96413; J1100; J1642; J2405; J7050; J9045

== ENCOUNTER 2018-01-11 09:15 | Day surgery (SDC) | payer MEDICARE, OTHER ==
[2018-01-11] MEDS ORDERED: CARBOPLATIN IVPB SCH (10:00)
[2018-01-11] MEDS ORDERED: SODIUM CHLORIDE 0.9% IVPB SCH (10:00)
[2018-01-11] MEDS ORDERED: Ondansetron PF 4 MG/2 ML Vial SLOW IVP SCH (10:00)
[2018-01-11] MEDS ORDERED: Dexamethasone 10 MG/ML VIAL SLOW IVP SCH (10:00)
[2018-01-11 10:23] VITALS: BP 163/77; TEMP 98.5
[2018-01-11] MEDS ORDERED: Sodium Chloride 0.9% 20 ML ONE (10:51)
== END 2018-01-11 13:32 | disposition home or self-care (01) ==
LOC: ONC/OP 09:15
PROVIDERS: ATTEND Internal Medicine Medical Oncology
DX: Z51.11 Encounter for antineoplastic chemotherapy (principal); C53.8 Malignant neoplasm of overlapping sites of cervix uteri; J44.9 Chronic obstructive pulmonary disease, unspecified; E78.2 Mixed hyperlipidemia; I10 Essential (primary) hypertension; F17.200 Nicotine dependence, unspecified, uncomplicated; Z79.899 Other long term (current) drug therapy; Z88.8 Allergy status to other drugs, medicaments and biological substances
CPT/HCPCS: 36415; 80053; 82248; 83615; 84100; 84550; 96375; 96413; J1100; J1642; J2405; J7050; J9045

== ENCOUNTER 2018-01-18 09:16 | Day surgery (SDC) | payer MEDICARE, OTHER ==
[2018-01-18] MEDS ORDERED: Sodium Chloride 0.9% 20 ML ONE (09:24)
[2018-01-18] MEDS ORDERED: BEVACIZUMAB IVPB SCH (09:45)
[2018-01-18] MEDS ORDERED: Ondansetron 2MG/ML MDV 10 MG, Dexamethasone 10 MG in Sodium Chloride 0.9% 50 ML IVPB SCH ×2 (09:45→10:00)
[2018-01-18] MEDS ORDERED: CARBOPLATIN IVPB SCH (09:45)
[2018-01-18] MEDS ORDERED: SODIUM CHLORIDE 0.9% IVPB SCH ×2 (09:45)
[2018-01-18 09:58] VITALS: BP 152/74; TEMP 97.8
== END 2018-01-18 12:55 | disposition home or self-care (01) ==
LOC: ONC/OP 09:16
PROVIDERS: ATTEND Internal Medicine Medical Oncology
DX: Z51.11 Encounter for antineoplastic chemotherapy (principal); C53.8 Malignant neoplasm of overlapping sites of cervix uteri; C78.7 Secondary malignant neoplasm of liver and intrahepatic bile duct; C78.89 Secondary malignant neoplasm of other digestive organs; J44.9 Chronic obstructive pulmonary disease, unspecified; E78.2 Mixed hyperlipidemia; I10 Essential (primary) hypertension; F17.210 Nicotine dependence, cigarettes, uncomplicated; F41.9 Anxiety disorder, unspecified; F32.9 Major depressive disorder, single episode, unspecified; Z86.718 Personal history of other venous thrombosis and embolism; Z79.01 Long term (current) use of anticoagulants; Z79.899 Other long term (current) drug therapy; Z88.8 Allergy status to other drugs, medicaments and biological substances
CPT/HCPCS: 36415; 80053; 82248; 83615; 84100; 84550; 96375; 96413; 96417; J1100; J1642; J2405; J7050; J9035; J9045

== ENCOUNTER 2018-01-25 08:51 | Day surgery (SDC) | payer MEDICARE, OTHER ==
[2018-01-25] MEDS ORDERED: Sodium Chloride 0.9% 20 ML ONE (08:55)
[2018-01-25 09:22] VITALS: BP 177/87; TEMP 98.1
[2018-01-25] MEDS ORDERED: Ondansetron 2MG/ML MDV 10 MG, Dexamethasone Sod Phosphate 10 MG in Sodium Chloride 0.9%... IVPB SCH (09:30)
[2018-01-25] MEDS ORDERED: CARBOPLATIN IVPB SCH (09:30)
[2018-01-25] MEDS ORDERED: SODIUM CHLORIDE 0.9% IVPB SCH (09:30)
[2018-01-25] MEDS ORDERED: Ondansetron 2MG/ML MDV 10 MG, Dexamethasone 10 MG in Sodium Chloride 0.9% 50 ML IVPB SCH (09:30)
== END 2018-01-25 10:45 | disposition home or self-care (01) ==
LOC: ONC/OP 08:51
PROVIDERS: ATTEND Internal Medicine Medical Oncology
DX: Z51.11 Encounter for antineoplastic chemotherapy (principal); C53.8 Malignant neoplasm of overlapping sites of cervix uteri; J44.9 Chronic obstructive pulmonary disease, unspecified; E78.2 Mixed hyperlipidemia; I10 Essential (primary) hypertension; M19.90 Unspecified osteoarthritis, unspecified site; F17.210 Nicotine dependence, cigarettes, uncomplicated; Z86.718 Personal history of other venous thrombosis and embolism; Z79.01 Long term (current) use of anticoagulants; Z79.899 Other long term (current) drug therapy; Z88.8 Allergy status to other drugs, medicaments and biological substances
CPT/HCPCS: 96375; 96413; J1100; J1642; J2405; J7050; J9045

== ENCOUNTER 2018-02-01 09:32 | Day surgery (SDC) | payer MEDICARE, OTHER ==
[2018-02-01] MEDS ORDERED: CARBOPLATIN IVPB SCH (10:00)
[2018-02-01] MEDS ORDERED: SODIUM CHLORIDE 0.9% IVPB SCH (10:00)
[2018-02-01] MEDS ORDERED: Ondansetron 2MG/ML MDV 10 MG, Dexamethasone 10 MG in Sodium Chloride 0.9% 50 ML IVP SCH (10:00)
[2018-02-01] MEDS ORDERED: Sodium Chloride 0.9% 40 ML ONE (10:13)
[2018-02-01 10:20] VITALS: BP 135/59; TEMP 98.2
== END 2018-02-01 12:40 | disposition home or self-care (01) ==
LOC: ONC/OP 09:32
PROVIDERS: ATTEND Internal Medicine Medical Oncology
DX: Z51.11 Encounter for antineoplastic chemotherapy (principal); C53.8 Malignant neoplasm of overlapping sites of cervix uteri; J44.9 Chronic obstructive pulmonary disease, unspecified; E78.2 Mixed hyperlipidemia; I10 Essential (primary) hypertension; M19.90 Unspecified osteoarthritis, unspecified site; F41.9 Anxiety disorder, unspecified; F32.9 Major depressive disorder, single episode, unspecified; F17.200 Nicotine dependence, unspecified, uncomplicated; Z98.51 Tubal ligation status; Z86.718 Personal history of other venous thrombosis and embolism; Z88.8 Allergy status to other drugs, medicaments and biological substances; Z79.01 Long term (current) use of anticoagulants; Z79.899 Other long term (current) drug therapy
CPT/HCPCS: 36415; 80053; 82248; 83615; 84100; 84550; 96375; 96413; J1100; J1642; J2405; J7050; J9045

== ENCOUNTER 2018-02-07 11:13 | Outpatient (CLI) | payer MEDICARE, OTHER ==
--- NOTE | 2018-02-07 15:40 | PET ---
PET WITH CT SKULL TO MID THIGH: COMPARISON: Reference is made to prior PET CT 10/30/2017. CLINICAL HISTORY: Uterine cancer/cervical cancer. RADIOPHARMACEUTICAL: 11.9 mCi fluorine 18 FDG IV mixed with 10 cc 0.9% sodium chloride. RADIOTRACER DISTRIBUTION: There is appropriate physiologic distribution of radiotracer activity. FINDINGS: There are numerous, progressive hypermetabolic foci throughout the chest, abdomen, and pelvis. There has been progression of the previously noted metabolic activity along the left pleural margin of the thorax, with hypermetabolic activity now confirmed at SUV of 5.6. There is a small focus of hyperme tabolic activity within the medial left apex with SUV of 2.6 indicating a malignant, metastatic nodul e which does contain spiculated margins by CT attenuation correction imaging, and a diameter that ana paula roximates 12 mm. There are numerous hypermetabolic masses throughout the liver, the most pronounced of which is located within the posterior segment right hepatic lobe with an SUV of 11. There has bee n interval reoccurrence of posteromedial splenic lesion, with SUV of 3.8 which is an interval progres abhilash from the most recent comparison exam. There is increased metabolic activity, hypermetabolic, GONCALVES V of 6.5 with the posterior pelvis, which is inseparable from the region of the anorectal verge and t he posterior vaginal vault. A component of this finding could relate to physiologic activity given t he traversing bowel, although residual/recurrent disease in light of the patient's history of cervic al/uterine cancer cannot be excluded. There is a cirrhotic morphology of the hepatic contour. Bilateral indwelling ureteral stents are pre sent. There is an IVC filter. Scattered vascular disease is present. IMPRESSION: Evidence of diffuse, progressive metastatic disease of the chest and abdomen as discussed above. The re is hypermetabolic activity of the pelvis nearing the junction of the anorectal verge and the poste rior vaginal vault. Findings are equivocal, given the possibility of superimposed physiologic activi ty and, therefore, recommend correlation with physical exam for evidence of recurrent/residual diseas e in this region. POS: [facility]
== END 2018-02-07 11:14 | disposition home or self-care (01) ==
LOC: PET 11:13
PROVIDERS: ATTEND Internal Medicine Medical Oncology
DX: C53.9 Malignant neoplasm of cervix uteri, unspecified (principal); C78.7 Secondary malignant neoplasm of liver and intrahepatic bile duct; C78.89 Secondary malignant neoplasm of other digestive organs
CPT/HCPCS: 78815; A9552

== ENCOUNTER 2018-02-08 10:05 | Day surgery (SDC) | payer MEDICARE, OTHER ==
[2018-02-08] MEDS ORDERED: Sodium Chloride 0.9% 40 ML ONE (10:16)
[2018-02-08] MEDS ORDERED: Ondansetron HCl/PF 10 MG in Sodium Chloride 0.9% 50 ML IVPB SCH (11:00)
[2018-02-08] MEDS ORDERED: Dexamethasone 10 MG/ML VIAL SLOW IVP SCH (11:00)
[2018-02-08] MEDS ORDERED: CARBOPLATIN IVPB SCH (11:00)
[2018-02-08] MEDS ORDERED: SODIUM CHLORIDE 0.9% IVPB SCH ×3 (11:00→11:15)
[2018-02-08] MEDS ORDERED: BEVACIZUMAB IVPB SCH ×2 (11:00→11:15)
[2018-02-08 11:30] VITALS: BP 198/90; TEMP 98
== END 2018-02-08 13:58 | disposition home or self-care (01) ==
LOC: ONC/OP 10:05
PROVIDERS: ATTEND Internal Medicine Medical Oncology
DX: Z51.11 Encounter for antineoplastic chemotherapy (principal); C53.8 Malignant neoplasm of overlapping sites of cervix uteri; I10 Essential (primary) hypertension; J44.9 Chronic obstructive pulmonary disease, unspecified; E78.2 Mixed hyperlipidemia; M19.90 Unspecified osteoarthritis, unspecified site; F32.9 Major depressive disorder, single episode, unspecified; F41.9 Anxiety disorder, unspecified; Z98.51 Tubal ligation status; Z79.01 Long term (current) use of anticoagulants; Z79.2 Long term (current) use of antibiotics; Z79.899 Other long term (current) drug therapy
CPT/HCPCS: 36415; 80053; 82248; 83615; 84100; 84550; 96375; 96413; 96417; J1100; J1642; J2405; J7050; J9035; J9045

== ENCOUNTER 2018-02-15 09:49 | Day surgery (SDC) | payer MEDICARE, OTHER ==
[2018-02-15] MEDS ORDERED: Dexamethasone 10 MG/ML VIAL SLOW IVP SCH (10:00)
[2018-02-15] MEDS ORDERED: Ondansetron PF 4 MG/2 ML Vial IVP SCH (10:00)
[2018-02-15] MEDS ORDERED: CARBOPLATIN IVPB SCH (10:00)
[2018-02-15] MEDS ORDERED: SODIUM CHLORIDE 0.9% IVPB SCH (10:00)
[2018-02-15] MEDS ORDERED: Sodium Chloride 0.9% 20 ML ONE (10:13)
[2018-02-15 11:55] VITALS: BP 177/90; TEMP 98
== END 2018-02-15 11:56 | disposition home or self-care (01) ==
LOC: ONC/OP 09:49
PROVIDERS: ATTEND Internal Medicine Medical Oncology
DX: Z51.11 Encounter for antineoplastic chemotherapy (principal); C53.8 Malignant neoplasm of overlapping sites of cervix uteri; Z88.8 Allergy status to other drugs, medicaments and biological substances
CPT/HCPCS: 96375; 96413; J1100; J1642; J2405; J7050; J9045

== ENCOUNTER 2018-03-01 08:36 | Day surgery (SDC) | payer MEDICARE, OTHER ==
[2018-03-01 09:24] VITALS: BP 150/92; TEMP 97.8
[2018-03-01] MEDS ORDERED: ADMIXTURE FEE IVPB SCH (09:45)
[2018-03-01] MEDS ORDERED: SODIUM CHLORIDE 0.9% IVPB SCH ×2 (09:45→10:00)
[2018-03-01] MEDS ORDERED: DIPHENHYDRAMINE IVPB SCH (09:45)
[2018-03-01] MEDS ORDERED: PACLITAXEL PROTEIN BOUND IVPB SCH ×2 (09:45)
[2018-03-01] MEDS ORDERED: Ondansetron 2MG/ML MDV 10 MG in Sodium Chloride 0.9% 50 ML IVP SCH (09:45)
[2018-03-01] MEDS ORDERED: ADMIXTURE FEE CHEMO IVPB SCH (09:45)
[2018-03-01] MEDS ORDERED: Famotidine/PF 20 MG in Sodium Chloride 0.9% 50 ML IVPB SCH (09:45)
[2018-03-01] MEDS ORDERED: DEXAMETHASONE IVPB SCH (09:45)
[2018-03-01] MEDS ORDERED: diphenhydrAMINE 25 MG in Sodium Chloride 0.9% 50 ML IVPB SCH (10:00)
[2018-03-01] MEDS ORDERED: BEVACIZUMAB IVPB SCH (10:00)
[2018-03-01] MEDS ORDERED: Ondansetron 2MG/ML MDV 10 MG, Dexamethasone Sod Phosphate 10 MG in Sodium Chloride 0.9%... IVPB SCH (10:00)
[2018-03-01] MEDS ORDERED: Prevnar 13-Val Conj/PF 0.5 ML SYRINGE IM ONE (10:15)
[2018-03-01] MEDS ORDERED: Sodium Chloride 0.9% 20 ML ONE (11:20)
== END 2018-03-01 16:05 | disposition home or self-care (01) ==
LOC: ONC/OP 08:36
PROVIDERS: ATTEND Internal Medicine Medical Oncology
DX: Z51.11 Encounter for antineoplastic chemotherapy (principal); C53.8 Malignant neoplasm of overlapping sites of cervix uteri; J44.9 Chronic obstructive pulmonary disease, unspecified; E78.2 Mixed hyperlipidemia; I10 Essential (primary) hypertension; M19.90 Unspecified osteoarthritis, unspecified site; F17.200 Nicotine dependence, unspecified, uncomplicated; Z86.718 Personal history of other venous thrombosis and embolism; Z79.01 Long term (current) use of anticoagulants; Z79.899 Other long term (current) drug therapy; Z88.8 Allergy status to other drugs, medicaments and biological substances
CPT/HCPCS: 36415; 80053; 82248; 83615; 84100; 84550; 90471; 90670; 96375; 96413; 96415; 96417; G0009; J1100; J1200; J1642; J2405; J7050; J9035; J9264; S0028

== ENCOUNTER 2018-03-08 08:31 | Day surgery (SDC) | payer MEDICARE, OTHER ==
[2018-03-08] MEDS ORDERED: Sodium Chloride 0.9% 20 ML ONE (08:34)
[2018-03-08] MEDS ORDERED: PACLITAXEL PROTEIN BOUND IVPB SCH (08:45)
[2018-03-08] MEDS ORDERED: Ondansetron PF 4 MG/2 ML Vial IVP SCH (08:45)
[2018-03-08] MEDS ORDERED: ADMIXTURE FEE IVPB SCH (08:45)
[2018-03-08 10:03] VITALS: BP 160/88; TEMP 98
== END 2018-03-08 11:10 | disposition home or self-care (01) ==
LOC: ONC/OP 08:31
PROVIDERS: ATTEND Internal Medicine Medical Oncology
DX: Z51.11 Encounter for antineoplastic chemotherapy (principal); C53.8 Malignant neoplasm of overlapping sites of cervix uteri; J44.9 Chronic obstructive pulmonary disease, unspecified; E78.2 Mixed hyperlipidemia; I10 Essential (primary) hypertension; M19.90 Unspecified osteoarthritis, unspecified site; F17.200 Nicotine dependence, unspecified, uncomplicated; Z86.718 Personal history of other venous thrombosis and embolism; Z79.01 Long term (current) use of anticoagulants; Z79.899 Other long term (current) drug therapy; Z88.8 Allergy status to other drugs, medicaments and biological substances
CPT/HCPCS: 36415; 80048; 80061; 80076; 83036; 84443; 96375; 96413; J1642; J2405; J9264

== ENCOUNTER 2018-03-22 09:05 | Day surgery (SDC) | payer MEDICARE, OTHER ==
[2018-03-22] MEDS ORDERED: SODIUM CHLORIDE 0.9% IVPB SCH (09:45)
[2018-03-22] MEDS ORDERED: BEVACIZUMAB IVPB SCH (09:45)
[2018-03-22] MEDS ORDERED: PACLITAXEL PROTEIN BOUND IVPB SCH (09:45)
[2018-03-22] MEDS ORDERED: Ondansetron PF 4 MG/2 ML Vial SLOW IVP SCH (09:45)
[2018-03-22] MEDS ORDERED: ADMIXTURE FEE IVPB SCH (09:45)
[2018-03-22 11:36] VITALS: BP 126/84; TEMP 98.7
== END 2018-03-22 13:46 | disposition home or self-care (01) ==
LOC: ONC/OP 09:05
PROVIDERS: ATTEND Internal Medicine Medical Oncology
DX: Z51.11 Encounter for antineoplastic chemotherapy (principal); C53.8 Malignant neoplasm of overlapping sites of cervix uteri; J44.9 Chronic obstructive pulmonary disease, unspecified; E78.2 Mixed hyperlipidemia; I10 Essential (primary) hypertension; M19.90 Unspecified osteoarthritis, unspecified site; Z86.718 Personal history of other venous thrombosis and embolism; Z79.01 Long term (current) use of anticoagulants; Z79.899 Other long term (current) drug therapy; Z88.8 Allergy status to other drugs, medicaments and biological substances
CPT/HCPCS: 96375; 96413; 96417; J2405; J7050; J9035; J9264

== ENCOUNTER 2018-04-05 06:25 | Day surgery (SDC) | payer MEDICARE, OTHER ==
[~2018-04-05 06:25] MED LIST: ADMIXTURE FEE IVPB SCH; BEVACIZUMAB IVPB SCH; Ondansetron 2MG/ML MDV 10 MG in Sodium Chloride 0.9% 50 ML IVP SCH; PACLITAXEL PROTEIN BOUND IVPB SCH; SODIUM CHLORIDE 0.9% IVPB SCH
[2018-04-05] MEDS ORDERED: Sodium Chloride 0.9% 40 ML ONE (08:55)
[2018-04-05 10:23] VITALS: BP 171/87; TEMP 98.7
== END 2018-04-05 11:53 | disposition home or self-care (01) ==
LOC: ONC/OP 06:25
PROVIDERS: ATTEND Internal Medicine Medical Oncology
DX: Z51.11 Encounter for antineoplastic chemotherapy (principal); C53.8 Malignant neoplasm of overlapping sites of cervix uteri; J44.9 Chronic obstructive pulmonary disease, unspecified; E78.2 Mixed hyperlipidemia; I10 Essential (primary) hypertension; M19.90 Unspecified osteoarthritis, unspecified site; F17.200 Nicotine dependence, unspecified, uncomplicated; Z86.718 Personal history of other venous thrombosis and embolism; Z88.8 Allergy status to other drugs, medicaments and biological substances
CPT/HCPCS: 96375; 96413; 96417; J1642; J2405; J7050; J9035; J9264

== ENCOUNTER 2018-04-19 09:26 | Day surgery (SDC) | payer MEDICARE, OTHER ==
[2018-04-19] MEDS ORDERED: Sodium Chloride 0.9% 30 ML ONE (09:37)
[2018-04-19 10:09] VITALS: BP 161/82; TEMP 98
== END 2018-04-19 12:07 | disposition home or self-care (01) ==
LOC: ONC/OP 09:26
PROVIDERS: ATTEND Internal Medicine Medical Oncology
DX: Z51.11 Encounter for antineoplastic chemotherapy (principal); C53.8 Malignant neoplasm of overlapping sites of cervix uteri; J44.9 Chronic obstructive pulmonary disease, unspecified; E78.2 Mixed hyperlipidemia; I10 Essential (primary) hypertension; M19.90 Unspecified osteoarthritis, unspecified site; F17.200 Nicotine dependence, unspecified, uncomplicated; Z88.8 Allergy status to other drugs, medicaments and biological substances
CPT/HCPCS: 96375; 96413; 96417; J1642; J2405; J7050; J9035; J9264

== ENCOUNTER 2018-04-26 09:30 | Day surgery (SDC) | payer MEDICARE, OTHER ==
[~2018-04-26 09:30] MED LIST changes: -BEVACIZUMAB IVPB SCH; +Bevacizumab 400 MG in Sodium Chloride 0.9% 84 ML IVPB SCH; -SODIUM CHLORIDE 0.9% IVPB SCH
[2018-04-26] MEDS ORDERED: Sodium Chloride 0.9% 20 ML ONE (09:48)
[2018-04-26 10:03] VITALS: BP 135/81; TEMP 98.8
== END 2018-04-26 11:57 | disposition home or self-care (01) ==
LOC: ONC/OP 09:30
PROVIDERS: ATTEND Internal Medicine Medical Oncology
DX: Z51.11 Encounter for antineoplastic chemotherapy (principal); C53.8 Malignant neoplasm of overlapping sites of cervix uteri
CPT/HCPCS: 96375; 96413; 96417; J1642; J2405; J7050; J9035; J9264

== ENCOUNTER 2018-05-07 11:50 | Outpatient (CLI) | payer MEDICARE ==
--- NOTE | 2018-05-07 15:23 | PET ---
FNuclear medicine PET/CT: 05/07/2018 HISTORY: 67-year-old female with cancer of the uterine cervix. Follow-up. TECHNIQUE: F-18 FDG dose: 12.9 mCi COMPARISON: 02/07/2018 FINDINGS: NECK: No pathologic hypermetabolic activity CHEST: Small left apical spiculated pulmonary nodule at the medial aspect of apex apical segment of left upp er lobe is similar in size compared to prior attenuation correction CT. Current maximum SUV is 4.8. I t was previously 5, minimally improved. The spiculated lesion broadly involving posterolateral aspect of the pleural surface with radiations into the left lower lobe parenchyma currently has maximum SUV of 5.0. It was previously 6.3, improved. Abutting the posterior lateral and medial base of the left lower lobe, the small pleural-based nodule has decreased in size and is now tiny with maximum SUV of 2.4. It was previously 3.7. ABDOMEN: The metastatic lesion in segment 6 of the right lobe of the liver has current maximum SUV of 8.9. It was previously 12.5. The several additional mildly hypermetabolic metastatic lesions elsewhere in the right lobe and left lobe of the liver are no longer hypermetabolic. The small focus of increased uptake at the medial asp ect of the spleen currently has maximum SUV of 3.8. It was previously 5.8. Pelvis: The irregularly-shaped region of increased uptake in the region of the anus and perineum, has current maximum SUV of 8.4. Previously 8.3, probably not significantly changed. No new lesions are identified. IMPRESSION: Interval improvement in most of the metastatic lesions. No new lesions.
== END 2018-05-07 11:51 | disposition home or self-care (01) ==
LOC: PET 11:50
PROVIDERS: ATTEND Internal Medicine Medical Oncology
DX: C53.9 Malignant neoplasm of cervix uteri, unspecified (principal)
CPT/HCPCS: 78815; A9552

== ENCOUNTER 2018-05-10 09:08 | Day surgery (SDC) | payer MEDICARE, OTHER ==
[~2018-05-10 09:08] MED LIST changes: +BEVACIZUMAB IVPB SCH; -Bevacizumab 400 MG in Sodium Chloride 0.9% 84 ML IVPB SCH; +SODIUM CHLORIDE 0.9% IVPB SCH
[2018-05-10] MEDS ORDERED: Sodium Chloride 0.9% 20 ML ONE (09:19)
[2018-05-10 12:51] VITALS: BP 165/98; TEMP 98.3
== END 2018-05-10 12:52 | disposition home or self-care (01) ==
LOC: ONC/OP 09:08
PROVIDERS: ATTEND Internal Medicine Medical Oncology
DX: Z51.11 Encounter for antineoplastic chemotherapy (principal); C53.8 Malignant neoplasm of overlapping sites of cervix uteri; J44.9 Chronic obstructive pulmonary disease, unspecified; E78.2 Mixed hyperlipidemia; I10 Essential (primary) hypertension; Z86.718 Personal history of other venous thrombosis and embolism; Z88.8 Allergy status to other drugs, medicaments and biological substances
CPT/HCPCS: 96375; 96413; 96417; J1642; J2405; J7050; J9035; J9264

== ENCOUNTER 2018-05-17 09:43 | Day surgery (SDC) | payer MEDICARE, OTHER ==
[~2018-05-17 09:43] MED LIST changes: -BEVACIZUMAB IVPB SCH; -SODIUM CHLORIDE 0.9% IVPB SCH
[2018-05-17] MEDS ORDERED: Sodium Chloride 0.9% 30 ML ONE (10:03)
[2018-05-17 10:04] VITALS: BP 135/76; TEMP 98.4
== END 2018-05-17 11:44 | disposition home or self-care (01) ==
LOC: ONC/OP 09:43
PROVIDERS: ATTEND Internal Medicine Medical Oncology
DX: Z51.11 Encounter for antineoplastic chemotherapy (principal); C53.8 Malignant neoplasm of overlapping sites of cervix uteri; I10 Essential (primary) hypertension; J44.9 Chronic obstructive pulmonary disease, unspecified; E78.2 Mixed hyperlipidemia; M19.90 Unspecified osteoarthritis, unspecified site; F41.9 Anxiety disorder, unspecified; F32.9 Major depressive disorder, single episode, unspecified; Z98.51 Tubal ligation status; Z88.8 Allergy status to other drugs, medicaments and biological substances; Z79.2 Long term (current) use of antibiotics; Z79.891 Long term (current) use of opiate analgesic; Z79.01 Long term (current) use of anticoagulants; Z79.899 Other long term (current) drug therapy
CPT/HCPCS: 36415; 80053; 82248; 83615; 84100; 84550; 96375; 96413; J1642; J2405; J7050; J9264

== ENCOUNTER 2018-06-27 13:29 | Day surgery (SDC) | payer MEDICARE ==
[2018-06-27] MEDS ORDERED: Sodium Chloride 0.9% 30 ML ONE (13:41)
[2018-06-27 13:43] VITALS: BP 117/68; TEMP 97.6
[2018-06-27] MEDS ORDERED: Ondansetron PF 4 MG/2 ML Vial IVP SCH (13:45)
[2018-06-27] MEDS ORDERED: ADMIXTURE FEE IVPB SCH (13:45)
[2018-06-27] MEDS ORDERED: PACLITAXEL PROTEIN BOUND IVPB SCH (13:45)
[2018-06-27] MEDS ORDERED: SODIUM CHLORIDE 0.9% IVPB SCH (14:00)
[2018-06-27] MEDS ORDERED: BEVACIZUMAB IVPB SCH (14:00)
[2018-06-27] MEDS ORDERED: Ondansetron 2MG/ML MDV 10 MG in Sodium Chloride 0.9% 50 ML IVPB SCH (14:00)
== END 2018-06-27 16:59 | disposition home or self-care (01) ==
LOC: ONC/OP 13:29
PROVIDERS: ATTEND Internal Medicine Medical Oncology
DX: Z51.11 Encounter for antineoplastic chemotherapy (principal); C53.8 Malignant neoplasm of overlapping sites of cervix uteri; Z88.8 Allergy status to other drugs, medicaments and biological substances; Z79.2 Long term (current) use of antibiotics; Z79.891 Long term (current) use of opiate analgesic
CPT/HCPCS: 80053; 82248; 83615; 84100; 84550; 96375; 96413; 96417; J1642; J2405; J3490; J7050; J9035; J9264

== ENCOUNTER 2018-07-04 09:48 | Day surgery (SDC) | payer MEDICARE ==
[~2018-07-04 09:48] MED LIST changes: -Ondansetron 2MG/ML MDV 10 MG in Sodium Chloride 0.9% 50 ML IVP SCH; +Ondansetron 2MG/ML MDV 10 MG in Sodium Chloride 0.9% 50 ML IVPB SCH; +Ondansetron PF 4 MG/2 ML Vial IVP SCH
[2018-07-04] MEDS ORDERED: Sodium Chloride 0.9% 20 ML ONE (09:55)
[2018-07-04 10:34] VITALS: BP 152/78; TEMP 97.5
== END 2018-07-04 12:05 | disposition home or self-care (01) ==
LOC: ONC/OP 09:48
PROVIDERS: ATTEND Internal Medicine Medical Oncology
DX: Z51.11 Encounter for antineoplastic chemotherapy (principal); C53.8 Malignant neoplasm of overlapping sites of cervix uteri; Z88.8 Allergy status to other drugs, medicaments and biological substances
CPT/HCPCS: 36415; 80048; 80061; 80076; 83036; 84443; 96375; 96413; J1642; J2405; J7050; J9264

== ENCOUNTER 2018-07-11 13:27 | Day surgery (SDC) | payer MEDICARE, OTHER ==
[~2018-07-11 13:27] MED LIST changes: +BEVACIZUMAB IVPB SCH; +Ondansetron 2MG/ML MDV 10 MG in Sodium Chloride 0.9% 50 ML IVP SCH; -Ondansetron 2MG/ML MDV 10 MG in Sodium Chloride 0.9% 50 ML IVPB SCH; -Ondansetron PF 4 MG/2 ML Vial IVP SCH; +SODIUM CHLORIDE 0.9% IVPB SCH
[2018-07-11 13:52] VITALS: BP 164/85; TEMP 97.5
[2018-07-11] MEDS ORDERED: Sodium Chloride 0.9% 30 ML ONE (13:55)
== END 2018-07-11 16:00 | disposition home or self-care (01) ==
LOC: ONC/OP 13:27
PROVIDERS: ATTEND Internal Medicine Medical Oncology
DX: Z51.11 Encounter for antineoplastic chemotherapy (principal); C53.8 Malignant neoplasm of overlapping sites of cervix uteri; J44.9 Chronic obstructive pulmonary disease, unspecified; E78.2 Mixed hyperlipidemia; I10 Essential (primary) hypertension; Z86.718 Personal history of other venous thrombosis and embolism; Z88.8 Allergy status to other drugs, medicaments and biological substances
CPT/HCPCS: 96375; 96413; 96417; J1642; J2405; J3490; J7050; J9035; J9264

== ENCOUNTER 2018-07-25 14:33 | Day surgery (SDC) | payer MEDICARE, OTHER ==
[2018-07-25] MEDS ORDERED: Sodium Chloride 0.9% 20 ML ONE (14:41)
[2018-07-25 16:23] VITALS: BP 140/80; TEMP 97.9
== END 2018-07-25 17:08 | disposition home or self-care (01) ==
LOC: ONC/OP 14:33
PROVIDERS: ATTEND Internal Medicine Medical Oncology
DX: Z51.11 Encounter for antineoplastic chemotherapy (principal); C53.8 Malignant neoplasm of overlapping sites of cervix uteri; Z88.8 Allergy status to other drugs, medicaments and biological substances
CPT/HCPCS: 96375; 96413; 96417; J1642; J2405; J3490; J7050; J9035; J9264

== ENCOUNTER 2018-08-08 14:01 | Day surgery (SDC) | payer MEDICARE, OTHER ==
[~2018-08-08 14:01] MED LIST changes: -Ondansetron 2MG/ML MDV 10 MG in Sodium Chloride 0.9% 50 ML IVP SCH; +Ondansetron 2MG/ML MDV 10 MG in Sodium Chloride 0.9% 50 ML IVPB SCH
[2018-08-08] MEDS ORDERED: Sodium Chloride 0.9% 20 ML ONE (14:07)
[2018-08-08 15:31] VITALS: BP 137/65; TEMP 98.5
== END 2018-08-08 16:48 | disposition home or self-care (01) ==
LOC: ONC/OP 14:01
PROVIDERS: ATTEND Internal Medicine Medical Oncology
DX: Z51.11 Encounter for antineoplastic chemotherapy (principal); C53.8 Malignant neoplasm of overlapping sites of cervix uteri; Z88.8 Allergy status to other drugs, medicaments and biological substances
CPT/HCPCS: 96375; 96413; 96417; J1642; J2405; J3490; J9035; J9264

== ENCOUNTER 2018-08-16 09:48 | Day surgery (SDC) | payer MEDICARE, OTHER ==
[~2018-08-16 09:48] MED LIST changes: -BEVACIZUMAB IVPB SCH; -SODIUM CHLORIDE 0.9% IVPB SCH
[2018-08-16] MEDS ORDERED: Sodium Chloride 0.9% 20 ML ONE (09:58)
[2018-08-16 12:10] VITALS: BP 133/71; TEMP 97.9
== END 2018-08-16 12:13 | disposition home or self-care (01) ==
LOC: ONC/OP 09:48
PROVIDERS: ATTEND Internal Medicine Medical Oncology
DX: Z51.11 Encounter for antineoplastic chemotherapy (principal); C53.8 Malignant neoplasm of overlapping sites of cervix uteri; Z88.8 Allergy status to other drugs, medicaments and biological substances
CPT/HCPCS: 96375; 96413; J1642; J2405; J9264

== ENCOUNTER 2018-08-29 14:22 | Day surgery (SDC) | payer MEDICARE, OTHER ==
[~2018-08-29 14:22] MED LIST changes: +BEVACIZUMAB IVPB SCH; +SODIUM CHLORIDE 0.9% IVPB SCH
[2018-08-29] MEDS ORDERED: Sodium Chloride 0.9% 20 ML ONE (14:38)
[2018-08-29 16:08] VITALS: BP 145/74; TEMP 97.8
== END 2018-08-29 16:56 | disposition home or self-care (01) ==
LOC: ONC/OP 14:22
PROVIDERS: ATTEND Internal Medicine Medical Oncology
DX: Z51.11 Encounter for antineoplastic chemotherapy (principal); C53.8 Malignant neoplasm of overlapping sites of cervix uteri; Z88.8 Allergy status to other drugs, medicaments and biological substances
CPT/HCPCS: 80053; 82248; 83615; 84100; 84550; 96375; 96413; 96417; J1642; J2405; J3490; J9035; J9264

== ENCOUNTER 2018-09-05 10:26 | Day surgery (SDC) | payer MEDICARE, OTHER ==
[~2018-09-05 10:26] MED LIST changes: -BEVACIZUMAB IVPB SCH; -SODIUM CHLORIDE 0.9% IVPB SCH
[2018-09-05] MEDS ORDERED: Sodium Chloride 0.9% 20 ML ONE (10:48)
[2018-09-05 11:28] VITALS: BP 124/71; TEMP 97.4
== END 2018-09-05 12:48 | disposition home or self-care (01) ==
LOC: ONC/OP 10:26
PROVIDERS: ATTEND Internal Medicine Medical Oncology
DX: Z51.11 Encounter for antineoplastic chemotherapy (principal); C53.8 Malignant neoplasm of overlapping sites of cervix uteri; Z88.8 Allergy status to other drugs, medicaments and biological substances
CPT/HCPCS: 96375; 96413; J1642; J2405; J9264

== ENCOUNTER 2018-09-10 11:35 | Outpatient (CLI) | payer MEDICARE, OTHER ==
--- NOTE | 2018-09-10 15:21 | PET ---
Exam: PET CT skull to mid thigh COMPARISON: None HISTORY: Uterine cancer TECHNIQUE: A PET/CT was performed from the skull to the mid thigh after administration of 11.2 millic uries of F-18 FDG. Evaluation was performed on a [employer] workstation. FINDINGS: NECK: At the left base of neck, within the supraclavicular fossa, there is hypermetabolic adenopathy, with maximum SUV of 5.6, new from prior exam. Nonspecific mild increased metabolic activity localizing to the left perimandibular region, just lateral to the left mandibular body, inferiorly is nonspecific. A discrete lesion by CT imaging is not confirmed in this region CHEST: There are scattered pulmonary nodules bilaterally, many of which are below threshold for PET r esolution, although there are hypermetabolic nodules of the left lung apex, a component of which demonstrates cavitation, medially within the left lung apex. SUV maximum is documented within the emerald id nodule at the anterior left apex of approximately 3.5, with findings having progressed from recent exam. Multiple hypermetabolic mediastinal lymph nodes are present involving the pretracheal, p araesophageal, subcarinal, and AP window region of the mediastinum, with SUV maximum of approximately 5.1 within the pretracheal region. There is abnormal pleural-based opacity of the poste rior lateral left hemithorax which demonstrates hypermetabolic activity, SUV maximum of approximately 5.5 approximates the intercostal space, and is inseparable from the left seventh and ei ghth ribs, posterolaterally. ABDOMEN/PELVIS: Marked interval progression in volume of hypermetabolic activity localizing to the po sterior segment right hepatic lobe correlating to a large hypodense mass, with SUV maximum of 6.6. The ill-defined hypodense mass by noncontrast CT imaging is approximately 7.6 cm in diameter. Numerou s additional hypermetabolic lesions throughout the liver are present, progressive from prior exam. Periaortic adenopathy, to left of midline demonstrates SUV maximum of 4.9, new from prior exam. Hyper metabolic activity is also present at the portacaval region, SUV of approximately 3.2, new from prior exam and may relate to metastatic adenopathy. Misregistration of hypermetabolic activity near s plenic hypodensity is present, superimposed upon the posterior wall of the stomach and intervening soft tissue nodularity measures SUV maximum of 5, which is new from prior exam. Redemonstration of hypermetabolic activity about the region of the anorectal verge/perineum, with int erval decrease of SUV, currently 4.4. SKELETON: Abnormal hypermetabolic activity along posterior lateral left ribs as described above, loca lizing to the seventh and eighth left ribs. There is abnormal hypermetabolic activity of the posterior medial left ribs at the level of the fifth, sixth and seventh ribs. IMPRESSION: Marked interval progression of diffuse metastatic disease involving the neck, chest, abdomen/pelvis, and osseous structures, as detailed above. Transcribed Date/Time: 09/10/2018 4:23 PM
== END 2018-09-10 11:36 | disposition home or self-care (01) ==
LOC: PET 11:35
PROVIDERS: ATTEND Internal Medicine Medical Oncology
DX: C53.8 Malignant neoplasm of overlapping sites of cervix uteri (principal); C79.51 Secondary malignant neoplasm of bone; C77.8 Secondary and unspecified malignant neoplasm of lymph nodes of multiple regions
CPT/HCPCS: 78815; A9552

== ENCOUNTER 2018-10-03 12:14 | Day surgery (SDC) | payer MEDICARE, OTHER ==
[~2018-10-03 12:14] MED LIST changes: -ADMIXTURE FEE IVPB SCH; -Ondansetron 2MG/ML MDV 10 MG in Sodium Chloride 0.9% 50 ML IVPB SCH; -PACLITAXEL PROTEIN BOUND IVPB SCH; +Pembrolizumab 200 MG in Sodium Chloride 0.9% 250 ML 250 ML IV SCH
[2018-10-03] MEDS ORDERED: Sodium Chloride 0.9% 20 ML ONE (12:22)
[2018-10-03 12:33] VITALS: BP 139/87; TEMP 97.9
== END 2018-10-03 13:54 | disposition home or self-care (01) ==
LOC: ONC/OP 12:14
PROVIDERS: ATTEND Internal Medicine Medical Oncology
DX: Z51.11 Encounter for antineoplastic chemotherapy (principal); C53.8 Malignant neoplasm of overlapping sites of cervix uteri
CPT/HCPCS: 36415; 80053; 82248; 83615; 84100; 84436; 84443; 84550; 96413; J1642; J7050; J9271

== ENCOUNTER 2018-10-15 09:17 | Emergency (ER) | payer MEDICARE, OTHER ==
--- NOTE | 2018-10-15 11:37 | RAD ---
3 views of the lumbar spine: 10/15/2018 COMPARISON: None HISTORY: Pain FINDINGS: There is evidence of prior kyphoplasty at the L5 level and the T10 level. There is an IVC f ilter present. Bilateral ureteral stents are present. Lateral examination demonstrates normal vertebral body height and alignment. No acute displaced fract ure. There is disc space narrowing with degenerative endplate change and anterior osteophyte formation at T11-12, L1-2, and L2-3. IMPRESSION: Postprocedural changes as detailed above. No acute lumbar spine fracture.
--- NOTE | 2018-10-15 11:45 | RAD ---
Radiograph right ribs 3 views: HISTORY: 68-year-old female with cervical cancer metastatic to bone presents with right rib pain without traum a FINDINGS: No recent fracture, and no definite destructive osseous lesion is identified. There is vertebroplasty methyl methacrylate cement in the mid T9 vertebral body. Left subclavian implantable vascular access port with distal tip at SVC. IMPRESSION: 1. No convincing evidence of right-sided rib metastasis or fracture. 2. Consider nuclear medicine bone scan. 3. Status post vertebroplasty of T9 compression fracture. 4. Inferior vena cava filter. 5. Right ureteral stent.
== END 2018-10-15 12:34 | disposition home or self-care (01) ==
LOC: ERS 09:17
DX: R07.81 Pleurodynia (principal); C79.51 Secondary malignant neoplasm of bone; C76.0 Malignant neoplasm of head, face and neck; E78.5 Hyperlipidemia, unspecified; I10 Essential (primary) hypertension; F32.9 Major depressive disorder, single episode, unspecified; Z87.891 Personal history of nicotine dependence
CPT/HCPCS: 72110